=== PATIENT | female | born 1955 | race Two or more races ===

== ENCOUNTER 2020-05-07 09:22 | Outpatient (REF) | payer OTHER, SELFPAY ==
[2020-05-07 10:32] LABS: Alanine Aminotransferase 20 U/L (0-31); Albumin Level 4.5 g/dL (3.5-5.0); Alkaline Phosphatase 65 U/L (39-117); Anion Gap 12 (12-20); Aspartate Amino Transferase 20 U/L (5-31); Bilirubin Total 0.6 mg/dL (0.0-1.0); Blood Urea Nitrogen 16 mg/dL (9-16); Calcium 8.8 mg/dL (8.4-10.2); Carbon Dioxide 30 mmol/L (22-29); Chloride 104 mmol/L (96-108); Cholesterol 249 mg/dL; Estimated Glomerular Filt Rate > 60; Glucose Fasting 112 mg/dL (60-99); HDL Cholesterol 56 mg/dL; LDL Cholesterol Calculated 159 mg/dl; Potassium 4.2 mmol/l (3.3-5.1); Sodium 142 mmol/L (135-145); Triglycerides 174 mg/dL
== END 2020-05-07 09:23 | disposition home or self-care (01) ==
LOC: HO.LAB 09:22
PROVIDERS: Visit Provider Internal Medicine
DX: E78.00 Pure hypercholesterolemia, unspecified (principal); I10 Essential (primary) hypertension
CPT/HCPCS: 80053; 80061

== ENCOUNTER 2020-08-01 09:29 | Outpatient (REF) | payer OTHER, SELFPAY ==
[2020-08-01 10:36] LABS: Alanine Aminotransferase 20 U/L (0-31); Albumin Level 4.4 g/dL (3.5-5.0); Alkaline Phosphatase 74 U/L (39-117); Anion Gap 11 (12-20); Aspartate Amino Transferase 20 U/L (5-31); Bilirubin Total 0.7 mg/dL (0.0-1.0); Blood Urea Nitrogen 14 mg/dL (9-16); Calcium 8.8 mg/dL (8.4-10.2); Carbon Dioxide 30 mmol/L (22-29); Chloride 104 mmol/L (96-108); Cholesterol 198 mg/dL; Estimated Glomerular Filt Rate > 60; Glucose Fasting 112 mg/dL (60-99); HDL Cholesterol 54 mg/dL; LDL Cholesterol Calculated 112 mg/dl; Potassium 3.6 mmol/L (3.3-5.1); Sodium 141 mmol/L (135-145); Total Protein 6.8 g/dL (6.5-8.0); Triglycerides 164 mg/dL
== END 2020-08-01 09:30 | disposition home or self-care (01) ==
LOC: HO.LAB 09:29
PROVIDERS: PCP Internal Medicine; Visit Provider Internal Medicine
DX: E78.00 Pure hypercholesterolemia, unspecified (principal); E78.5 Hyperlipidemia, unspecified; L50.9 Urticaria, unspecified
CPT/HCPCS: 36415; 80053; 80061; 82784; 83516; 86003

== ENCOUNTER 2020-08-05 10:02 | Outpatient (REF) | payer OTHER, SELFPAY ==
--- NOTE | ~2020-08-05 | MM_ITS ---
EXAMINATION: MM SCREENING DIGITAL BREAST TOMOSYNTHESIS, BILATERAL CLINICAL INFORMATION: Screening. Asymptomatic. The lifetime risk of breast cancer based on the Tyrer-Cuzick Model is 5%. COMPARISON: Mammography: 07/19/2019, 05/04/2018, 04/20/2018, 02/24/2017 TECHNIQUE: Digital breast tomosynthesis is performed in both the craniocaudal and mediolateral oblique views along with computer-aided detection (CAD). Synthesized 2D images are generated from the tomosynthesis. FINDINGS: There are scattered areas of fibroglandular density (ACR BI-RADS breast composition Category b). Parenchymal pattern is similar to prior studies. There is no developing density or interval mass or architectural abnormality. Some scattered benign nodularity are stable. There are some scattered punctate calcifications in each breast and a few round grouped calcifications again seen mid 3:00 left breast. The axilla and skin contours are unremarkable. MM/MM tomosynthesis screening BI IMPRESSION: No mammographic evidence of malignancy. ASSESSMENT: BI-RADS 2: Benign RECOMMENDATION: Routine annual mammography screening. This patient's information was entered into a reminder system with a target due date for their next mammogram.
== END 2020-08-05 10:03 | disposition home or self-care (01) ==
LOC: HO.MAMMO 10:02
PROVIDERS: Visit Provider Internal Medicine
DX: Z12.31 Encounter for screening mammogram for malignant neoplasm of breast (principal)
CPT/HCPCS: 77063; 77067

== ENCOUNTER 2021-05-28 08:16 | Outpatient (REF) | payer OTHER, SELFPAY ==
[2021-05-28 09:07] LABS: Alanine Aminotransferase 23 U/L (0-31); Albumin Level 4.5 g/dL (3.5-5.0); Alkaline Phosphatase 65 U/L (39-117); Anion Gap 11 (12-20); Aspartate Amino Transferase 21 U/L (5-31); Bilirubin Total 0.6 mg/dL (0.0-1.0); Blood Urea Nitrogen 22 mg/dL (9-16); Calcium 9.4 mg/dL (8.4-10.2); Carbon Dioxide 28 mmol/L (22-29); Chloride 106 mmol/L (96-108); Cholesterol 161 mg/dL; Estimated Glomerular Filt Rate > 60; Glucose Fasting 125 mg/dL (60-99); HDL Cholesterol 54 mg/dL; LDL Cholesterol Calculated 87 mg/dl; Potassium 3.2 mmol/L (3.3-5.1); Sodium 142 mmol/L (135-145); Triglycerides 101 mg/dL
== END 2021-05-28 08:17 | disposition home or self-care (01) ==
LOC: HO.LAB 08:16
PROVIDERS: PCP Internal Medicine; Visit Provider Internal Medicine
DX: E78.00 Pure hypercholesterolemia, unspecified (principal); E78.5 Hyperlipidemia, unspecified
CPT/HCPCS: 36415; 80053; 80061

== ENCOUNTER 2021-08-06 10:54 | Outpatient (REF) | payer OTHER, SELFPAY ==
--- NOTE | ~2021-08-06 | MM_ITS ---
EXAMINATION: MM SCREENING DIGITAL BREAST TOMOSYNTHESIS, BILATERAL CLINICAL INFORMATION: Screening. Asymptomatic. The lifetime risk of breast cancer based on the Tyrer-Cuzick Model is 4%. COMPARISON: Mammography: 08/05/2020, 07/19/2019, 05/04/2018, 02/24/2017 TECHNIQUE: Digital breast tomosynthesis is performed in both the craniocaudal and mediolateral oblique views along with computer-aided detection (CAD). Synthesized 2D images are generated from the tomosynthesis. FINDINGS: There are scattered areas of fibroglandular density (ACR BI-RADS breast composition Category b). Parenchymal pattern is similar to prior studies. There is no developing density or interval mass or architectural abnormality. Intramammary node mid upper outer right breast and stable circumscribed nodule anterior lower inner right breast are again seen. There are scattered punctate calcifications right breast. The bilateral axilla and skin contours are unremarkable. Left breast has tightly grouped calcifications posterior 3:00 which may be increased over time. Patient will be recalled to obtain additional magnification views to fully characterize. MM/MM tomosynthesis screening BI IMPRESSION: 1. Left: Tightly grouped calcifications posterior 3:00 position questionably increased. 2. Right: No mammographic evidence of malignancy. ASSESSMENT: BI-RADS 0: Incomplete - Need Additional Imaging Evaluation RECOMMENDATION: 1. Additional views of the left breast (magnification CC, magnification ML). 2. Radiology department staff will contact the patient for additional imaging. This patient's information was entered into a reminder system with a target due date for their next mammogram.
== END 2021-08-06 10:55 | disposition home or self-care (01) ==
LOC: HO.MAMMO 10:54
PROVIDERS: PCP Internal Medicine; Visit Provider Internal Medicine
DX: Z12.31 Encounter for screening mammogram for malignant neoplasm of breast (principal)
CPT/HCPCS: 77063; 77067

== ENCOUNTER 2021-08-14 08:26 | Outpatient (REF) | payer OTHER, SELFPAY ==
--- NOTE | ~2021-08-14 | MM_ITS ---
EXAMINATION: MM DIAGNOSTIC DIGITAL MAMMOGRAPHY, LEFT CLINICAL INFORMATION: Calcifications upper outer aspect of the left breast. COMPARISON: Mammography: 08/06/2021 and studies dating back to 02/24/2017. TECHNIQUE: Digital mammography is performed in the following views: Spot magnification views in craniocaudal and 90 degree mediolateral views. FINDINGS: There are scattered areas of fibroglandular density (ACR BI-RADS breast composition Category b). The grouping of calcifications within the upper outer aspect of the left breast is seen to be stable for greater than 2 years. Results are provided to the patient at time of visit by the technologist. MM/MM added views LT IMPRESSION: Stable left breast calcifications. ASSESSMENT: BI-RADS 2: Benign RECOMMENDATION: Routine annual mammography screening due in 12 months. This patient's information was entered into a reminder system with a target due date for their next mammogram.
== END 2021-08-14 08:27 | disposition home or self-care (01) ==
LOC: HO.MAMMO 08:26
PROVIDERS: PCP Internal Medicine; Visit Provider Internal Medicine
DX: R92.1 Mammographic calcification found on diagnostic imaging of breast (principal)
CPT/HCPCS: 77065

== ENCOUNTER 2021-12-25 08:21 | Outpatient (REF) | payer OTHER, SELFPAY ==
[2021-12-25 09:41] LABS: Alanine Aminotransferase 19 U/L (0-31); Albumin Level 4.5 g/dL (3.5-5.0); Alkaline Phosphatase 67 U/L (39-117); Anion Gap 14 (12-20); Aspartate Amino Transferase 21 U/L (5-31); Bilirubin Total 0.7 mg/dL (0.0-1.0); Blood Urea Nitrogen 15 mg/dL (9-16); Calcium 9.5 mg/dL (8.4-10.2); Carbon Dioxide 28 mmol/L (22-29); Chloride 104 mmol/L (96-108); Cholesterol 165 mg/dL; Estimated Glomerular Filt Rate > 60; Glucose Fasting 124 mg/dL (60-99); HDL Cholesterol 56 mg/dL; LDL Cholesterol Calculated 88 mg/dl; Potassium 3.4 mmol/L (3.3-5.1); Sodium 143 mmol/L (135-145); Total Protein 7.1 g/dL (6.5-8.0); Triglycerides 109 mg/dL
== END 2021-12-25 08:22 | disposition home or self-care (01) ==
LOC: HO.LAB 08:21
PROVIDERS: PCP Internal Medicine; Visit Provider Internal Medicine
DX: R73.02 Impaired glucose tolerance (oral) (principal); E78.5 Hyperlipidemia, unspecified
CPT/HCPCS: 36415; 80053; 80061

== ENCOUNTER 2022-06-22 08:28 | Outpatient (REF) | payer OTHER, SELFPAY ==
[2022-06-22 10:17] LABS: Alanine Aminotransferase 20 U/L (0-31); Albumin Level 4.4 g/dL (3.5-5.0); Alkaline Phosphatase 76 U/L (39-117); Anion Gap 14 (12-20); Aspartate Amino Transferase 19 U/L (5-31); Bilirubin Total 0.6 mg/dL (0.0-1.0); Blood Urea Nitrogen 15 mg/dL (9-16); Calcium 9.4 mg/dL (8.4-10.2); Carbon Dioxide 28 mmol/L (22-29); Chloride 104 mmol/L (96-108); Cholesterol 154 mg/dL; Estimated Glomerular Filt Rate > 60; Glucose Fasting 121 mg/dL (60-99); HDL Cholesterol 49 mg/dL; LDL Cholesterol Calculated 84 mg/dl; Potassium 3.5 mmol/L (3.3-5.1); Sodium 142 mmol/L (135-145); Total Protein 6.9 g/dL (6.5-8.0); Triglycerides 108 mg/dL
== END 2022-06-22 08:29 | disposition home or self-care (01) ==
LOC: HO.LAB 08:28
PROVIDERS: PCP Internal Medicine; Visit Provider Internal Medicine
DX: E78.5 Hyperlipidemia, unspecified (principal); R73.02 Impaired glucose tolerance (oral)
CPT/HCPCS: 36415; 80053; 80061

== ENCOUNTER 2022-08-12 10:29 | Outpatient (REF) | payer OTHER, SELFPAY ==
--- NOTE | ~2022-08-12 | MM_ITS ---
EXAMINATION: MM SCREENING DIGITAL BREAST TOMOSYNTHESIS, BILATERAL CLINICAL INFORMATION: Screening. Asymptomatic. The lifetime risk of breast cancer based on the Tyrer-Cuzick Model is 4%. COMPARISON: Mammography: 08/14/2021, 08/06/2021, 08/05/2020, 07/19/2019, 05/04/2018 TECHNIQUE: Digital breast tomosynthesis is performed in both the craniocaudal and mediolateral oblique views along with computer-aided detection (CAD). Synthesized 2D images are generated from the tomosynthesis. FINDINGS: There are scattered areas of fibroglandular density (ACR BI-RADS breast composition Category b). There are no significant masses, abnormal calcifications, or other abnormalities. No architectural abnormality or developing density or significant change from prior studies. There is incidental stable circumscribed nodule mid lower inner right breast and an incidental intramammary node mid upper outer right breast. The axilla and skin contours are unremarkable. MM/MM tomosynthesis screening BI IMPRESSION: No mammographic evidence of malignancy. ASSESSMENT: BI-RADS 2: Benign RECOMMENDATION: Routine annual mammography screening. This patient's information was entered into a reminder system with a target due date for their next mammogram.
== END 2022-08-12 10:30 | disposition home or self-care (01) ==
LOC: HO.MAMMO 10:29
PROVIDERS: PCP Internal Medicine; Visit Provider Internal Medicine
DX: Z12.31 Encounter for screening mammogram for malignant neoplasm of breast (principal)
CPT/HCPCS: 77063; 77067

== ENCOUNTER → 2022-08-13 09:29 | Outpatient (BNVA) | payer OTHER, SELFPAY | PROVIDERS: PCP Internal Medicine; Visit Provider Surgery | DX: Z85.038 Personal history of other malignant neoplasm of large intestine (principal) | CPT/HCPCS: 99212 ==

== ENCOUNTER 2022-09-25 06:02 | Day surgery (SDC) | payer OTHER, SELFPAY ==
[2022-09-22 11:24] VITALS: BMI 30.2
--- NOTE | 2022-09-24 09:12 | HO.ANESPROP2 ---
HPI - Anesthesia Eval Consult details Narrative: 66yo F for Colonoscopy PMFSH Active Problems Active Problems: All Active Problems (Updated 08/13/22 @ 09:49 by Palomo Roth MD) History of colon cancer (Acute) Physical exam (Acute) Screening for cervical cancer (Acute) Obesity (BMI 30-39.9) (Acute) Impaired glucose tolerance (Acute) Pure hypercholesterolemia (Acute) Urticaria (Acute) Migraines (Acute) Essential hypertension (Acute) Past Medical History Medical History Essential hypertension History of colon cancer Impaired glucose tolerance Migraines Pure hypercholesterolemia Urticaria Family History Family History Father Throat cancer Mother Diabetes Sister Uterine cancer Brother Lung cancer Surgical History Surgical History History of hemicolectomy History of ileostomy History of incisional hernia repair History of tubal ligation Hx of colonoscopy Social History Social History Housing: Apartment Alcohol intake: never Patient Tobacco Use Status: Former Tobacco user Quit Date: >20 yrs ago Tobacco use type: Cigarette e-Cigarette/Vaping Use: Never Used Second Hand Smoke Exposure: No service: No Current occupational status: disabled Cognitive needs: No Hearing needs: No Vision needs: No Meds Allergies Allergy/AdvReac Type Severity Reaction Status Date / Time No Known Allergies Allergy Verified 09/25/22 06:29 [No Known Allergies*] Home Medications Medication Instructions Recorded Confirmed Last Taken Type levocetirizine 5 mg tablet (Xyzal) 5 mg PO DAILY 01/09/21 09/22/22 Unknown History Exam Exam Date and Time: September 24, 2022 0912 Height,Weight and Vital Signs: Height 5 ft 4 in Weight 79.832 kg Pertinent Lab Results Pertinent Lab Results: Laboratory Tests 06/22/22 08:45 Sodium 142 Potassium 3.5 Chloride 104 Carbon Dioxide 28 BUN 15 Creatinine 0.79 Assessment and Plan Assessment Anesthesia Assessment: Chart Reviewed
[2022-09-25 06:29] VITALS: BMI 28.7
[2022-09-25 06:54] VITALS: BP 153/66; PULSE 76; RESP 16; TEMP 36.2; O2SAT 98
[2022-09-25] MEDS: Lactated Ringers 1,000 ML 100 ML IVCONT (07:02)
--- NOTE | 2022-09-25 07:22 | P.CONAN_ITS ---
[facility] Active Problems Active Problems: All Active Problems (Updated 08/13/22 @ 09:49 by Palomo Roth MD) Obesity (BMI 30-39.9) (Acute) Screening for cervical cancer (Acute) Physical exam (Acute) History of colon cancer (Acute) Impaired glucose tolerance (Acute) Pure hypercholesterolemia (Acute) Urticaria (Acute) Migraines (Acute) Essential hypertension (Acute) Past Medical History Medical History Essential hypertension History of colon cancer Impaired glucose tolerance Migraines Pure hypercholesterolemia Urticaria Functional capacity: wheelchair bound Family History Family History Father Throat cancer Mother Diabetes Sister Uterine cancer Brother Lung cancer Surgical History Surgical History History of hemicolectomy History of ileostomy History of incisional hernia repair History of tubal ligation Hx of colonoscopy Social History Social History Housing: Apartment Alcohol intake: never Patient Tobacco Use Status: Former Tobacco user Quit Date: >20 yrs ago Tobacco use type: Cigarette e-Cigarette/Vaping Use: Never Used Second Hand Smoke Exposure: No Use of substances other than those prescribed or required for medical reasons: No Are you DNR?: No Advance Directives: No Advance Directives Information Provided: Yes service: No Current occupational status: disabled Cognitive needs: No Hearing needs: No Vision needs: No Meds Allergies Allergy/AdvReac Type Severity Reaction Status Date / Time No Known Allergies Allergy Verified 09/25/22 06:29 [No Known Allergies*] Active Medications: Current Medications Lactated Ringer's (Lr) 1,000 mls @ 100 mls/hr IVCONT .Q10H MELCHOR Last Admin: 09/25/22 07:02 Dose: 100 mls/hr Home Medications Medication Instructions Recorded Confirmed Last Taken Type levocetirizine 5 mg tablet (Xyzal) 5 mg PO DAILY 01/09/21 09/22/22 Unknown History Exam Exam Date and Time: September 25, 202222 Height,Weight and Vital Signs: Height 5 ft 4 in Weight 75.75 kg Last Vital Signs Temp 97.2 F 09/25/22 06:54 Pulse 76 09/25/22 06:54 Resp 16 09/25/22 06:54 BP 153/66 H 09/25/22 06:54 Pulse Ox 98 09/25/22 06:54 O2 Del Method Room Air 09/25/22 06:54 Airway Mallampati Class: II TM Dist: >3cm Neck ROM: Full Heart: RRR Lungs: CTA Assessment and Plan Assessment Anesthesia Assessment: Anesthesia Plan Discussed Final Anesthetic Review ASA Class: II Final Preanesthetic Review: Meds/Allgs Chart Reviewed, Anes Risks/Benef Reviewed and DNR Form (If Appl.) Patient Risk: Low Procedure Risk: Low Anesthetic Plan Anesthetic Plan: MAC: Disposition: Standard PACU
--- NOTE | 2022-09-25 07:32 | MHC.SHP ---
Pre-Procedural Eval Section A Date of Service: 09/25/22 The History & Physical has been completed within 30 days and I have reviewed it.: No Section B Chief Complaint: Personal history of other malignant neoplasm Details of Present Illness: has history of rectosigmoid cancer status post resection; had a flat polyp right colon in 2019 Relevant Family History (Specify if Yes): No Relevant Social History: None Present Medications: see Short Stay Collaborative assessment Medical History: Significant History ( hyperlipidemia, hypertension, migraine) Allergies: Allergies Allergy/AdvReac Type Severity Reaction Status Date / Time No Known Allergies Allergy Verified 09/25/22 06:29 [No Known Allergies*] Review of Systems Sugical H&P ROS: Negative: Constitution, Cardiovascular, Respiratory, Neurological, Psychiatric, Hem-Onc, Allergic/Immunologic, Gastrointestinal, Genitourinary, Musculoskeletal, Integumentary, Endocrine and Eyes/Ears/Nose/Throat Exam Surgical H&P Exam: Normal: HEENT, Normal: Heart, Normal: Lungs, Normal: Extremities, Normal: Abdomen, Normal: Skin and Normal: Neurological Plan Diagnosis/Plan: Unchanged I have reviewed the history and physical and performed a pertinent physical examination on my patient. No changes have occurred unless specified. Time Spent With Patient Time: Total time managing care of this patient today ____ minutes.
--- NOTE | 2022-09-25 08:11 | W.PM.OPN ---
Operative Note Operative Note Date of Service: 09/25/22 Narrative: Preop diagnosis: History of colon cancer Postop diagnosis: 1. Occasional diverticulosis all the way to the cecum 2. small polyp, about 4 mm, cecum 3. internal and external hemorrhoids Procedure: Colonoscopy with polypectomy using cold forceps x1 The patient is a 66-year-old female with a personal history of colon cancer in the rectosigmoid, status post resection. She is here for screening colonoscopy. she understood the technique of colonoscopy. She was aware of the risks, benefits, and alternatives The patient was brought to the operating room and placed in left lateral decubitus position under monitored anesthesia care. A surgical time-out was done. A full digital rectal exam was done and this did not reveal any significant anal lesions. The tip of the Olympus colonoscope was gently introduced through the anal orifice advanced with insufflation all the way to the cecum. The cecum was intubated. The cecum was identified by visualization of the ileocecal valve as well as the appendiceal orifice. The cecal mucosa was unremarkable. There was note of a polyp, about 3-4 mm in the cecum that was removed with multiple biopsy the cold forceps. The scope was gradually withdrawn with careful examination of the entire colonic mucosa being done with scope withdrawal. There was note of occasional diverticuli in the cecum and the rest of the colon. The patient had adequate bowel prep so it was unlikely that any lesion may have been missed. The rectum was reached and there were no lesions seen. The anal canal was unremarkable except for prominent internal and external hemorrhoids.. The scope was then withdrawn completely with desufflation The patient tolerated procedure well. There were no immediate complications. Because of her personal history of colon cancer, her next colonoscopy may be in the next 5 years depending on the path report as well.
[2022-09-25 08:16] VITALS: BP 87/54; PULSE 84; RESP 16; TEMP 36.5; O2SAT 98
[2022-09-25 08:31] VITALS: BP 119/67; PULSE 78; RESP 16; TEMP 36.5; O2SAT 98
--- NOTE | 2022-09-25 08:49 | HO.POSTANES ---
Post Anesthesia Evaluation Post Anesthesia Evaluation Vital Signs: Vital Signs Temp Pulse Resp BP Pulse Ox O2 Del Method 09/25/22 08:31 97.7 F 78 16 119/67 98 Room Air 09/25/22 08:16 97.7 F 84 16 87/54 L 98 Room Air 09/25/22 06:54 97.2 F 76 16 153/66 H 98 Room Air Anesthesia: Monitored Mental Status: Awake Pain Control: Satisfactory Nausea/Vomiting: None Hydration: Adequate Anesthesia-Related Issues: No Anes. Related Issues
== END 2022-09-25 09:06 | disposition home or self-care (01) ==
PROVIDERS: PCP Internal Medicine; Visit Provider Surgery
PROC: 0DJD8ZZ Inspection of Lower Intestinal Tract, Via Natural or Artificial Opening Endoscopic (ICD-10-PCS; CPT 45378; principal; 2022-09-25 07:30)
DX: Z12.11 Encounter for screening for malignant neoplasm of colon (principal); D12.0 Benign neoplasm of cecum; K57.30 Diverticulosis of large intestine without perforation or abscess without bleeding; K64.8 Other hemorrhoids; K64.4 Residual hemorrhoidal skin tags; Z85.048 Personal history of other malignant neoplasm of rectum, rectosigmoid junction, and anus; Z86.010 Personal history of colon polyps; I10 Essential (primary) hypertension; Z79.899 Other long term (current) drug therapy
CPT/HCPCS: 45380; 88305

== ENCOUNTER 2022-10-08 07:52 | Outpatient (REF) | payer OTHER, SELFPAY ==
[2022-10-15 09:23] LABS: HPV mRNA E6/E7 rflx Not Detected (Not Detected)
== END 2022-10-08 07:53 | disposition home or self-care (01) ==
LOC: HO.LNP 07:52
PROVIDERS: PCP Internal Medicine; Visit Provider Advanced Practice Midwife
DX: Z01.419 Encounter for gynecological examination (general) (routine) without abnormal findings (principal); N89.8 Other specified noninflammatory disorders of vagina; Z20.2 Contact with and (suspected) exposure to infections with a predominantly sexual mode of transmission
CPT/HCPCS: 87624; 88142

== ENCOUNTER 2022-10-08 08:39 | Outpatient (REF) | payer OTHER, SELFPAY ==
[2022-10-08 15:49] LABS: CT PCR NOT DETECTED (Not Detect.); NG PCR NOT DETECTED (Not Detect.)
[2022-10-09 11:40] LABS: BV Int Neg Control Negative (Negative); BV Int Pos Control Positive (Positive)
== END 2022-10-08 08:40 | disposition home or self-care (01) ==
LOC: HO.LAB 08:39
PROVIDERS: Visit Provider Advanced Practice Midwife
DX: K43.2 Incisional hernia without obstruction or gangrene (principal); N89.8 Other specified noninflammatory disorders of vagina; Z85.038 Personal history of other malignant neoplasm of large intestine; Z20.2 Contact with and (suspected) exposure to infections with a predominantly sexual mode of transmission
CPT/HCPCS: 0353U; 87480; 87510; 87660; 99212

== ENCOUNTER 2022-11-06 10:13 | Outpatient (REF) | payer OTHER, SELFPAY ==
--- NOTE | ~2022-11-06 | CT_ITS ---
EXAMINATION: CT ABDOMEN AND PELVIS WITHOUT CONTRAST CLINICAL INFORMATION: Incisional hernia without obstruction or gangrene COMPARISON: CT abdomen/pelvis 06/09/2018 TECHNIQUE: Multidetector volumetric imaging was performed from the superior aspect of the liver through the pubic symphysis. Sagittal and coronal reformatted images were obtained on the technologist's workstation. This CT examination was performed using dose optimization techniques as appropriate, variously including the following: *Automated exposure control *Adjustment of mA and/or kV according to patient size (this includes techniques or standardized protocols for targeted exams where dose is matched to indication/reason for exam; i.e. extremities or head) *Use of iterative reconstruction technique DLP: 506.5 mGy-cm FINDINGS: LUNG BASES: The visualized lung bases are unremarkable. LIVER, GALLBLADDER, AND BILIARY TREE: The liver is normal in size, shape, and attenuation. No focal hepatic lesion or biliary ductal dilatation is present. The gallbladder contains some layering high density gallstones seen previously without pericholecystic inflammatory changes. PANCREAS: Unremarkable. SPLEEN: Unremarkable. ADRENAL GLANDS: There is a 3.3 x 2.6 x 2.9 cm water density left adrenal mass consistent with a benign adenoma, unchanged from 2019. KIDNEYS AND URETERS: The kidneys are normal in size, shape, and attenuation. No hydronephrosis, hydroureter, or calculi seen. No perinephric stranding. BLADDER: Unremarkable. GASTROINTESTINAL TRACT: A tiny hiatal hernia is present. Anastomotic staple line seen in the ileum as well as the sigmoid colon without evidence of obstruction. The small and large bowel are otherwise unremarkable. The appendix is unremarkable. ABDOMINAL WALL: There are 2 areas of ventral herniation in the supraumbilical region; there is a tiny area with only a slight forward bulge measuring 1.3 cm in width protruding only 0.5 cm (4:326). Just above this is a small ventral hernia containing only fat with defect measuring 1.0 x 0.5 cm (4:289). There is a tiny periumbilical hernia containing only fat. No inguinal hernias are present. LYMPH NODES: No retroperitoneal lymphadenopathy. VASCULAR: Calcific atherosclerotic change seen in the aorta and iliofemoral vessels without aneurysm. PELVIC VISCERA: The uterus and adnexa are unremarkable aside from the presence of some calcifications in the uterus most likely representing uterine fibroids. These calcifications have increased in size since the time of the prior study. Endovaginal and transabdominal ultrasound is recommended for confirmation. OSSEOUS STRUCTURES: Mild degenerative changes are seen in the spine without bony destructive lesions. CT/CT abdomen pelvis wo IV con IMPRESSION: 1. There are 2 small ventral hernias containing only fat as described above. 2. There is a probable uterine fibroids with increasing calcification in the uterus. Transabdominal and endovaginal pelvic ultrasound is recommended for confirmation. 3. Incidental note made of cholelithiasis, sigmoid resection stable left adrenal adenoma and degenerative changes in the spine. Fleischner guidelines were followed.
== END 2022-11-06 10:14 | disposition home or self-care (01) ==
LOC: HO.CT 10:13
PROVIDERS: Visit Provider Surgery
DX: K43.2 Incisional hernia without obstruction or gangrene (principal)
CPT/HCPCS: 74176

== ENCOUNTER → 2022-11-25 09:50 | Outpatient (BNVA) | payer OTHER, SELFPAY | PROVIDERS: PCP Internal Medicine; Visit Provider Surgery | DX: K43.2 Incisional hernia without obstruction or gangrene (principal) | CPT/HCPCS: 99212 ==

== ENCOUNTER 2022-12-11 06:36 | Day surgery (SDC) | payer OTHER, MEDICAID, SELFPAY ==
[2022-12-08 13:58] VITALS: BMI 29.3
--- NOTE | 2022-12-10 09:15 | HO.ANESPROP2 ---
Documented by User: Sarah Bryant NP 12/10/22 09:16 HPI - Anesthesia Eval Consult details Narrative: 67yo F for Hernia Repair Incisional x2, epigastric area PMFSH Active Problems Active Problems: All Active Problems (Updated 10/08/22 @ 10:33 by Palomo Roth MD) Obesity (BMI 30-39.9) (Acute) Screening for cervical cancer (Acute) Physical exam (Acute) Incisional hernia (Acute) History of colon cancer (Acute) Impaired glucose tolerance (Acute) Pure hypercholesterolemia (Acute) Urticaria (Acute) Migraines (Acute) Essential hypertension (Acute) Past Medical History Medical History Essential hypertension History of colon cancer Impaired glucose tolerance Incisional hernia Migraines Pure hypercholesterolemia Urticaria Family History Family History Father Throat cancer Mother Diabetes Sister Uterine cancer Brother Lung cancer Surgical History Surgical History History of hemicolectomy History of ileostomy History of incisional hernia repair History of tubal ligation Hx of colonoscopy Social History Social History Housing: Apartment Alcohol intake: never Patient Tobacco Use Status: Former Tobacco user Quit Date: >20 yrs ago Tobacco use type: Cigarette e-Cigarette/Vaping Use: Never Used Second Hand Smoke Exposure: No Are you DNR?: No Advance Directives: No Advance Directives Information Provided: Yes Nutrition Risks: No Nutritional Risk service: No Current occupational status: disabled Sexual orientation: Straight/Heterosexual Gender identity: Female Cognitive needs: No Hearing needs: No Vision needs: No Meds Allergies Allergy/AdvReac Type Severity Reaction Status Date / Time No Known Allergies Allergy Verified 12/11/22 06:53 [No Known Allergies*] Home Medications Medication Instructions Recorded Confirmed Last Taken Type levocetirizine 5 mg tablet (Xyzal) 5 mg PO DAILY 01/09/21 09/22/22 Unknown History Exam Exam Date and Time: December 10, 2022 0915 Height,Weight and Vital Signs: Height 5 ft 4 in Weight 77.564 kg Pertinent Lab Results Pertinent Lab Results: Laboratory Tests 06/22/22 08:45 Sodium 142 Potassium 3.5 Chloride 104 Carbon Dioxide 28 BUN 15 Creatinine 0.79 Assessment and Plan Assessment Anesthesia Assessment: Chart Reviewed Documented by User: Arthur Pedroza MD 12/11/22 09:16 [facility] Past Medical History Medical History Essential hypertension History of colon cancer Impaired glucose tolerance Incisional hernia Migraines Pure hypercholesterolemia Urticaria Family History Family History Father Throat cancer Mother Diabetes Sister Uterine cancer Brother Lung cancer Family history of problems with anesthesia: No Surgical History Surgical History History of hemicolectomy History of ileostomy History of incisional hernia repair History of tubal ligation Hx of colonoscopy History of Problems with Anesthesia: No Social History Social History Housing: Apartment Alcohol intake: never Patient Tobacco Use Status: Former Tobacco user Quit Date: >20 yrs ago Tobacco use type: Cigarette e-Cigarette/Vaping Use: Never Used Second Hand Smoke Exposure: No Are you DNR?: No Advance Directives: No Advance Directives Information Provided: Yes Nutrition Risks: No Nutritional Risk service: No Current occupational status: disabled Sexual orientation: Straight/Heterosexual Gender identity: Female Cognitive needs: No Hearing needs: No Vision needs: No Meds Allergies Allergy/AdvReac Type Severity Reaction Status Date / Time No Known Allergies Allergy Verified 12/11/22 06:53 [No Known Allergies*] Home Medications Medication Instructions Recorded Confirmed Last Taken Type levocetirizine 5 mg tablet (Xyzal) 5 mg PO DAILY 01/09/21 09/22/22 Unknown History Exam Airway Mallampati Class: II TM Dist: <=3cm Neck ROM: Full Heart: ok Lungs: ok Assessment and Plan Assessment Anesthesia Assessment: Anesthesia Plan Discussed Final Anesthetic Review Family History of Problems with Anesthesia: No History of Problems with Anesthesia: No NPO: Yes ASA Class: II Final Preanesthetic Review: No Changes in Pt Med Stat, Meds/Allgs Chart Reviewed, Consent Obtained/Reviewed and Anes Risks/Benef Reviewed Patient Risk: Intermediate Procedure Risk: Low Anesthetic Plan Anesthetic Plan: GA and Agree w/ Assess. and Plan Disposition: Standard PACU
[2022-12-11] MEDS: Lactated Ringers 1,000 ML 100 ML IVCONT (07:06)
[2022-12-11 07:12] VITALS: BP 121/62; PULSE 70; RESP 18; TEMP 36.4; O2SAT 99
--- NOTE | 2022-12-11 08:19 | MHC.SHP ---
Pre-Procedural Eval Section A Date of Service: 12/11/22 The patient is an INPATIENT: No Changes since office visit: No Cold of Flu in the past 2 weeks, No New Medical Problems, No Changes in Medication and No Patient answered all questions The History & Physical has been completed within 30 days and I have reviewed it.: Yes Section B Chief Complaint: Incisional hernia without obstruction or gangrene Allergies: Allergies Allergy/AdvReac Type Severity Reaction Status Date / Time No Known Allergies Allergy Verified 12/11/22 06:53 [No Known Allergies*] Plan I have reviewed the history and physical and performed a pertinent physical examination on my patient. No changes have occurred unless specified. Time Spent With Patient Time: Total time managing care of this patient today ____ minutes.
--- NOTE | 2022-12-11 09:31 | P.OP_ITS ---
Operative Note Operative Note Date of Service: 12/11/22 Narrative: Preop Diagnosis: epigastric hernia x2 Postop diagnosis: The same Procedure: Repair of epigastric hernia x2 using Vexntralex mesh; 2 hernias converted to 1 hernia with a 4.5 cm length of defect Surgeon: Palomo Roth MD computer lab assistant: KATJA Turner The patient is 67 year old female with palpable 2 small masses on the epigastric area. She did have a history of a port site on this area for colon resection in the past. Her CAT scan showed to defects in the epigastric area both fat containing. She understood the technique of repair with mesh. She was aware of the risks, benefits, and alternatives She was brought to the operating room and placed supine under general anesthesia via laryngeal mask airway. The abdomen is prepped and draped in the usual sterile fashion. A surgical time-out was done to the patient received cefazolin 2 g IV preoperatively I infiltrated the planned line on incision in the epigastric area overlying a palpable reducible mass using blade 15. This carried out the full-thickness of the skin subcutaneous fat with electrocautery until I visualized a hernia. This hernia is fat containing. I sharply dissected this done to the fascial defect using Metzenbaum scissors until I was able to reduce this completely. This 1st hernia was about 1 cm in diameter. I palpated underneath the hernia and I was able to feel another defect inferior to this. There was note of short intervening band. I therefore extended my incision inferiorly. I sharply dissected through their subcutaneous layer to expose the 2nd hernia. There was note of a larger fat containing hernia. I sharply dissected this down to the fascial defect using Metzenbaum scissors until I was able to reduce this completely. This larger hernia was about 3 cm in diameter. I divided the int ervening band of fascia to make this two hernias as 1. I had to some lysis of adhesions to separate this entire omentum off of the fascial defect. This final fascial defect was about 4.5 cm in diameter I then proceeded to apply a medium-sized Ventralex mesh to reinforce entire hernia. There is note of adequate coverage. I secured this mesh using the Prolene straps to the fascia on both sides using Prolene 2 sutures. I trimmed the Prolene straps. I then closed the fascia with a running Maxon 1 stitch, incorporating the Prolene site of the mesh with some of the sutures There was note of good hemostasis prior to closure. I made sure that there was no bowel caught within the repair. The subcutaneous layer was reapposed with pulse of the 0 interrupted sutures. Skin closure was achieved with pulse of 4-0 subcuticular running sutures. The area was infiltrated with Marcaine 0.5% for postop analgesia. Dressings were applied. The procedure went completed. The patient tolerated procedure well. There were no immediate complications. Initial and final counts of sponges and instruments were correct . Estimated blood loss was about 10 cc .The patient was extubated without difficulty and transferred to the recovery room with stable vital signs.
[2022-12-11 09:50] VITALS: BP 127/71; PULSE 74; RESP 14; TEMP 36.1; O2SAT 95
[2022-12-11 09:55] VITALS: BP 126/68; PULSE 81; RESP 16; O2SAT 96
[2022-12-11 10:00] VITALS: BP 126/70; PULSE 69; RESP 18; O2SAT 99
[2022-12-11 10:05] VITALS: BP 133/70; PULSE 62; RESP 18; O2SAT 99
[2022-12-11] MEDS: ondansetron HCL 4 MG/2 ML VIAL IVPUSH (10:16)
[2022-12-11] MEDS: oxyCODONE HCl Immed Release 5 MG TABLET PO (10:17)
[2022-12-11 10:20] VITALS: BP 137/65; PULSE 60; RESP 18; TEMP 36.1; O2SAT 100
== END 2022-12-11 11:10 | disposition home or self-care (01) ==
PROVIDERS: PCP Internal Medicine; Visit Provider Surgery
PROC: (CPT 49593; principal; 2022-12-11 09:00)
DX: K43.2 Incisional hernia without obstruction or gangrene (principal); I10 Essential (primary) hypertension; Z85.038 Personal history of other malignant neoplasm of large intestine
CPT/HCPCS: 49593; C1781; J0690; J1885; J2250; J2405; J2795; J3010

== ENCOUNTER → 2022-12-11 06:36 | Outpatient (BNV) | payer OTHER, SELFPAY | PROVIDERS: PCP Internal Medicine; Visit Provider Surgery | DX: K43.0 Incisional hernia with obstruction, without gangrene (principal); K66.0 Peritoneal adhesions (postprocedural) (postinfection) | CPT/HCPCS: 49594 ==

== ENCOUNTER 2022-12-23 09:29 | Outpatient (AMB) | payer MEDICARE, MEDICAID, SELFPAY ==
--- NOTE | 2022-12-23 09:31 | MHC.PC.OV ---
Vital Signs 12/23/22 09:32 Height 5 ft 4 in Weight 168 lb BMI 28.8 BP 130/78 Blood Pressure Location Lt brachial Position Sitting Intake Visit Reasons: bp Intake Note: Patient here for a follow up BP Theatrical Variety Agent Required: No Accompanied by: Self / Same As Patient Allergies No Known Allergies [No Known Allergies*] Allergy (Verified 12/23/22 09:41) Medication List - Last Reconciled 12/23/22 by Carmelita Goncalves MD hydrochlorothiazide 25 mg PO DAILY hydroxyzine HCl 50 mg PO TID PRN 30 days ibuprofen 800 mg PO Q8H PRN 30 days levocetirizine (Xyzal) 5 mg PO DAILY oxycodone-acetaminophen 5-325 mg (Percocet) 1 tab PO Q4-6H PRN rosuvastatin 5 mg PO DAILY Tobacco use date assessed: 06/25/22 Fall risk assessment: No Falls in past year Last assessed Fall Risk: 12/23/22 Dental Screening Dental Screen Date: 12/23/22 Did you have a dental visit in the last 12 months?: No Did you have a dental problem in the last 6 months where you did not have access to dental care?: No Was dental information given to patient?: Patient has dentist HPI HPI Comments History of Present Illness Details This is a 67-year-old female with hypertension, pure hypercholesterolemia, migraines and urticaria that comes today for follow-up on her conditions. Blood pressure stable. On statins for cholesterol which is working well. Migraines happen once a month and is well control with ibuprofen as needed. For itchiness she use hydroxy seen as needed. No chest pain or shortness of breath. [facility] Medical History Essential hypertension History of colon cancer Impaired glucose tolerance Incisional hernia Migraines Pure hypercholesterolemia Urticaria Surgical History History of hemicolectomy History of hernia surgery History of ileostomy History of incisional hernia repair History of tubal ligation Hx of colonoscopy Family History Father Throat cancer Mother Diabetes Sister Uterine cancer Brother Lung cancer Social History Housing: Apartment Alcohol intake: never Patient Tobacco Use Status: Former Tobacco user Quit Date: >20 yrs ago Tobacco use type: Cigarette e-Cigarette/Vaping Use: Never Used Second Hand Smoke Exposure: No service: No Current occupational status: disabled Sexual orientation: Straight/Heterosexual Gender identity: Female Cognitive needs: No Hearing needs: No Vision needs: No Questionnaire Thrive Questionnaire Date Thrive assessed: 06/25/22 EVELYN-7 AMB Questionnaire EVELYN-7 Date EVELYN - 7 assessed: 06/25/22 Source: Developed by Drs. Jag Oropeza, Ami Oneill, Alex Castanon and colleagues, with an educational kianna from [employer]. Review of Systems Const All systems reviewed & are unremarkable except as noted in HPI and below Eyes Reports no additional complaints, Denies change in vision and Denies other visual disturbances Card Denies chest pain at rest, Denies chest pain with activity, Denies edema, Denies irregular heart rhythm, Denies claudication, Denies dyspnea, Denies dyspnea on exertion, Denies orthopnea, Denies paroxysmal nocturnal dyspnea and Denies slow heart rate Resp Denies cough, Denies dyspnea and Denies dyspnea on exertion GI Denies abdominal pain, Denies change in bowel habits, Denies excessive flatus, Denies nausea and Denies vomiting Denies urinary incontinence, Denies urinary hesitancy and Denies urinary urgency Musc Denies abnormal gait, Denies atrophy, Denies deformity and Denies limited range of motion Skin/Breast Denies bleeding lesions, Denies changing lesions and Denies rash Neuro Denies abnormal gait and Denies lack of coordination Physical exam (Primary Care) Vital Signs: Last Vital Signs BP 130/78 12/23/22 09:32 BMI result Body Mass Index 28.8 Tobacco/Smoking Status: Tobacco use Status Tobacco use date assessed 06/25/22 12/23/22 09:39 Patient Tobacco Use Status Former Tobacco user 12/23/22 09:39 Tobacco use type Cigarette 12/23/22 09:39 e-Cigarette/Vaping Use Never Used 12/23/22 09:39 Thrive Assessment: Date of Thrive Assessment Date Thrive assessed 06/25/22 12/23/22 09:39 Eyes General: appearance normal, both eyes and all related structures Eyelids: Yes eyelids normal Conjunctivae: conjunctivae normal Neck Neck: Yes normal visual inspection and Yes supple Resp Effort & Inspection: normal respiratory effort Auscultation: clear to auscultation bilaterally Cardio Jugular venous distension: no JVD Rate: regular rate Rhythm: regular rhythm Heart sounds: S1 normal heart sound present and S2 normal heart sound present Extrem General: Yes full ROM Assessment and Plan Assessment & Plan (1) Essential hypertension: Code(s): I10 - Essential (primary) hypertension Plan: Continue hydrochlorothiazide. Blood pressure goal is equal or less than 130/80. (2) Pure hypercholesterolemia: Code(s): E78.00 - Pure hypercholesterolemia, unspecified Plan: Continue statins. (3) Urticaria: Code(s): L50.9 - Urticaria, unspecified Plan: Continue hydroxy seen as needed. (4) Migraines: Code(s): G43.909 - Migraine, unspecified, not intractable, without status migrainosus Plan: Continue ibuprofen as needed. Coding Level of Care Code Est Pt Level 4 (36179) Diagnoses Essential hypertension I10 Pure hypercholesterolemia E78.00 Urticaria L50.9 Migraines G43.909 Time Spent (min) 21
[2022-12-23 09:32] VITALS: BP 130/78; BMI 28.8
== END 2022-12-23 09:48 | disposition home or self-care (01) ==
PROVIDERS: PCP Internal Medicine; Visit Provider Internal Medicine
DX: I10 Essential (primary) hypertension (principal); E78.00 Pure hypercholesterolemia, unspecified; L50.9 Urticaria, unspecified; G43.909 Migraine, unspecified, not intractable, without status migrainosus
CPT/HCPCS: 99214

== ENCOUNTER 2022-12-24 08:32 | Outpatient (AMB) | payer OTHER, SELFPAY ==
--- NOTE | 2022-12-24 08:34 | A.OFFVIS_ITS ---
Intake Vital Signs 12/24/22 08:40 Height 5 ft 4 in Weight 170 lb BMI 29.2 BP 132/69 Blood Pressure Location Lt brachial Position Sitting Pulse 73 Intake Visit Reasons: S/P repair incisional hernias x2 Intake Note: This patient presents for a post-op assessment status post repair of incisional hernias x2. Patient denies complaints at this time pertaining to surgery. Intel Recruiter Required: Yes Intel Recruiter Language: Sales Representative Printing Name: Patient declined appliance repairer Accompanied by: Other Relationship Allergies No Known Allergies [No Known Allergies*] Allergy (Verified 12/24/22 08:42) HPI S/P repair incisional hernias x2 HPI Details She had undergone repair of 2 incisional hernias last 12/11/2022. She tolerated procedure well. She currently denies significant complaints and feels well overall. [facility] Medical History Essential hypertension History of colon cancer Impaired glucose tolerance Incisional hernia Migraines Pure hypercholesterolemia Urticaria Surgical History History of hemicolectomy History of hernia surgery History of ileostomy History of incisional hernia repair History of incisional hernia repair (~2022) History of tubal ligation Hx of colonoscopy Family History Father Throat cancer Mother Diabetes Sister Uterine cancer Brother Lung cancer Social History Housing: Apartment Alcohol intake: never Patient Tobacco Use Status: Former Tobacco user Quit Date: >20 yrs ago Tobacco use type: Cigarette e-Cigarette/Vaping Use: Never Used Second Hand Smoke Exposure: No service: No Current occupational status: disabled Sexual orientation: Straight/Heterosexual Gender identity: Female Cognitive needs: No Hearing needs: No Vision needs: No Review of Systems Const Denies chills and Denies fever(s) Card Denies chest pain, Denies dyspnea and Denies dyspnea on exertion Resp Denies cough, Denies dyspnea and Denies dyspnea on exertion GI Denies hematochezia and Denies change in bowel habits Denies hematuria Musc Denies back pain and Denies limited range of motion Neuro Denies focal weakness and Denies convulsions Psych Denies depression and Denies mood swings Physical Exam Vital Signs: Last Vital Signs Pulse 73 12/24/22 08:40 BP 132/69 12/24/22 08:40 BMI result Body Mass Index 29.2 Const General: comfortable and no acute distress Resp Effort & Inspection: normal respiratory effort Cardio Rate: regular rate GI Other: Abdomen soft, nontender, nondistended, no guarding, no rebound, incision is well healed, no evidence of recurrence Assessment & Plan Assessment & Plan (1) Incisional hernia: Code(s): K43.2 - Incisional hernia without obstruction or gangrene Plan: Status post repair with mesh. She is doing very well. Her incision is well healed. The repair site is intact. I advised her to avoid any lifting more than 20 lb for at least 2 more weeks. She can follow up on a p.r.n. basis. Quality Reporting (2019) Adult ([facility] ) Smoking risk assessment performed?: Yes Patient Tobacco Use Status: Former Tobacco user Coding Level of Care Code Global (25785) Diagnoses Incisional hernia K43.2
[2022-12-24 08:40] VITALS: BP 132/69; PULSE 73; BMI 29.2
== END 2022-12-24 08:54 | disposition home or self-care (01) ==
PROVIDERS: PCP Internal Medicine; Visit Provider Surgery
DX: K43.2 Incisional hernia without obstruction or gangrene (principal)
CPT/HCPCS: 99213

== ENCOUNTER → 2022-12-24 08:32 | Outpatient (BNVA) | payer OTHER, SELFPAY | PROVIDERS: PCP Internal Medicine; Visit Provider Surgery | DX: Z48.815 Encounter for surgical aftercare following surgery on the digestive system (principal); Z87.19 Personal history of other diseases of the digestive system | CPT/HCPCS: 99212 ==

== ENCOUNTER 2023-07-07 09:52 | Outpatient (AMB) | payer OTHER, SELFPAY ==
--- NOTE | 2023-07-07 10:01 | A.OFFPC_ITS ---
Vital Signs 07/07/23 10:02 Height 5 ft 4 in Weight 169 lb BMI 29.0 BP 128/70 Blood Pressure Location Lt brachial Position Sitting Intake Visit Reasons: Annual Exam Intake Note: Patient here for an annual physical exam Machine Tool Mechanic Required: No Accompanied by: Self / Same As Patient Allergies No Known Allergies [No Known Allergies*] Allergy (Verified 07/07/23 10:23) Medication List - Last Reconciled 07/07/23 by Carmelita Goncalves MD hydrochlorothiazide 25 mg PO DAILY ibuprofen 800 mg PO Q8H PRN 30 days levocetirizine (Xyzal) 5 mg PO DAILY rosuvastatin 5 mg PO DAILY Tobacco use date assessed: 07/07/23 Fall risk assessment: No Falls in past year Last assessed Fall Risk: 07/07/23 Dental Screening Dental Screen Date: 07/07/23 Did you have a dental visit in the last 12 months?: No Did you have a dental problem in the last 6 months where you did not have access to dental care?: No Was dental information given to patient?: Patient has dentist HPI HPI Comments History of Present Illness Details This is a 67-year-old female that comes for her physical exam. Last colonoscopy was 2022 and last Pap smear was 2022. Last mammogram was also 2022. She denies any chest pain or shortness of breath. Has history of colon cancer few years ago that resolved with treatment and is doing fine. [facility] Medical History Incisional hernia History of colon cancer Impaired glucose tolerance Pure hypercholesterolemia Urticaria Migraines Essential hypertension Surgical History History of incisional hernia repair (~2022) History of hernia surgery Hx of colonoscopy History of incisional hernia repair History of ileostomy History of hemicolectomy History of tubal ligation Family History Father Throat cancer Mother Diabetes Sister Uterine cancer Brother Lung cancer Social History Housing: Apartment Alcohol intake: never Patient Tobacco Use Status: Former Tobacco user Quit Date: >20 yrs ago Tobacco use type: Cigarette e-Cigarette/Vaping Use: Never Used Second Hand Smoke Exposure: No service: No Current occupational status: disabled Sexual orientation: Straight/Heterosexual Gender identity: Female Cognitive needs: No Hearing needs: No Vision needs: No Questionnaire PHQ-9 Over the last 2 weeks, how often have you been bothered by any of the following problems? 1. Little interest or pleasure in doing things: not at all 2. Feeling down, depressed, or hopeless: not at all 3. Trouble falling or staying asleep, or sleeping too much: not at all 4. Feeling tired or having little energy: not at all 5. Poor appetite or overeating: not at all 6. Feeling bad about yourself - or that you are a failure or have let yourself or your family down: not at all 7. Trouble concentrating on things, such as reading the newspaper or watching television: not at all 8. Moving or speaking so slowly that other people could have noticed. Or the opposite - being so fidgety or restless that you have been moving around a lot more than usual: not at all 9. Thoughts that you would be better off or of hurting yourself in some way: not at all Total score: 0 Depression Screening Interpretation: Negative Depression Screening Done: Yes 87889 - PHQ-9 Billing: Yes Source: Developed by Drs. Jag Oropeza, Ami Oneill, Alex Castanon and colleagues, with an educational kianna from [employer]. Thrive Questionnaire Date Thrive assessed: 07/07/23 I am a: Patient What is your living situation today?: I have a steady place to live Within the past 12 months, did the food you bought not last and you didn't have the money to get more?: Never true Within the past 12 months, did you worry whether your food would run out before you got money to buy more?: Never true Do you have trouble paying for medicines?: No Do you have trouble getting transportation to medical appointments?: No Do you have trouble paying your heating and electricity bill?: No Do you have trouble taking care of your child, family member or friend?: No Do you have trouble with day-to-day activities such as bathing, preparing meals, shopping, managing finances, etc.?: No Are you currently unemployed and looking for a job?: No Are you interested in more education?: No Please select the resources that you would like help with: None Currently or been in a relationship where the following occur: no concerns reported THRIVE Score: 0 AUDIT C Alcohol Use Questionnaire (AUDIT-C) 1. How often do you have a drink containing alcohol?: Never Total Score: 0 Score Reviewed/Action Taken: No EVELYN-7 AMB Questionnaire EVELYN-7 Date EVELYN - 7 assessed: 07/07/23 Feeling nervous, anxious, or on edge: 0 = Not at all Not being able to stop or control worryin = Not at all Worrying too much about different things: 0 = Not at all Trouble relaxin = Not at all Being so restless that it is hard to sit still: 0 = Not at all Becoming easily annoyed or irritable: 0 = Not at all Feeling afraid as if something awful might happen: 0 = Not at all Total EVELYN-7 score (0-4 normal; 5-9 mild; 10-14 moderate; 15-21 severe): 0 Source: Developed by Drs. Jag Oropeza, Ami Oneill, Alex Castanon and colleagues, with an educational kianna from [employer]. EVELYN-7 Assessment Billing EVELYN-7 Assessment Tool: EVELYN-7 Assessment 46663 Review of Systems Const All systems reviewed & are unremarkable except as noted in HPI and below Eyes Reports no additional complaints, Denies change in vision and Denies other visual disturbances Card Denies chest pain at rest, Denies chest pain with activity, Denies edema, Denies irregular heart rhythm, Denies claudication, Denies dyspnea, Denies dyspnea on exertion, Denies orthopnea, Denies paroxysmal nocturnal dyspnea and Denies slow heart rate Resp Denies cough, Denies dyspnea and Denies dyspnea on exertion GI Denies abdominal pain, Denies change in bowel habits, Denies excessive flatus, Denies nausea and Denies vomiting Denies urinary incontinence, Denies urinary hesitancy and Denies urinary urgency Musc Denies abnormal gait, Denies atrophy, Denies deformity and Denies limited range of motion Skin/Breast Denies bleeding lesions, Denies changing lesions and Denies rash Neuro Denies abnormal gait, Denies behavioral changes, Denies confusion and Denies lack of coordination Psych Denies behavioral changes and Denies confusion Physical exam (Primary Care) Vital Signs: Last Vital Signs BP 128/70 07/07/23 10:02 BMI result Body Mass Index 29.0 Tobacco/Smoking Status: Tobacco use Status Tobacco use date assessed 07/07/23 07/07/23 10:07 Patient Tobacco Use Status Former Tobacco user 07/07/23 10:07 Tobacco use type Cigarette 07/07/23 10:07 e-Cigarette/Vaping Use Never Used 07/07/23 10:07 PHQ-9: PHQ-9 Score PHQ-9: Total score 0 07/07/23 10:39 Depression Screening Interpretation: Negative Thrive Assessment: Date of Thrive Assessment Date Thrive assessed 07/07/23 07/07/23 10:07 Currently or been in a relationship where the following occur: no concerns reported Const General: No confusion Orientation/consciousness: patient oriented x3 and No confusion HENMT Head: Yes normal to inspection, Yes normocephalic and Yes atraumatic Ears: external ears normal Eyes General: appearance normal, both eyes and all related structures Eyelids: Yes eyelids normal Conjunctivae: conjunctivae normal Neck Neck: Yes normal visual inspection and Yes supple Resp Effort & Inspection: normal respiratory effort Auscultation: clear to auscultation bilaterally Cardio Jugular venous distension: no JVD Rate: regular rate Rhythm: regular rhythm Heart sounds: S1 normal heart sound present and S2 normal heart sound present GI Inspection: Yes normal to inspection Palpation (GI): Soft to palpation and nontender Auscultation: normal bowel sounds Skin General skin exam: no rashes or lesions noted Neuro General: patient oriented x3, no focal motor deficits and No confusion Extrem General: Yes full ROM Psych Appearance: grossly normal Immunizations pneumoc 20-corazon conj-dip cr(PF) 0.5 mL IM syringe Performing Provider: Carmelita Goncalves MD Performing Location: [facility] Administered by: LISA Morton on 07/07/23 10:53 Dose Route Admin Location Dispensed Lot Number Expiration Date NDC Client Resolution Specialist 0.5 mL IM Left Deltoid 0.5 mL [id number] 07/22/24 9090-9845-24 WYETH/PFIZER VIS Given Date VIS Provided VIS Publication Date 07/07/23 Single Vaccine 21 Eligibility Eligibility Date Funding Source Not [facility] Eligible 02/14/24 Private Assessment and Plan Assessment & Plan (1) Physical exam: Code(s): Z00.00 - Encounter for general adult medical examination without abnormal findings Plan: Repeat in a year. Orders: Orders Pneumococcal 20 Immunization Today Z23 - Encounter for immunization Coding Level of Care Code Est Pt Prev Care >65y(35292) Diagnoses Physical exam Z00.00 Additional Codes EVELYN-7 Assessment Billing - EVELYN-7 Assessment Tool: EVELYN-7 Assessment 92997 ([id number]) Time Spent (min) 33
[2023-07-07 10:02] VITALS: BP 128/70; BMI 29.0
== END 2023-07-07 10:42 | disposition home or self-care (01) ==
PROVIDERS: PCP Internal Medicine; Visit Provider Internal Medicine
DX: Z00.00 Encounter for general adult medical examination without abnormal findings (principal); Z23 Encounter for immunization
CPT/HCPCS: 90471; 90677; 99397

== ENCOUNTER 2023-08-18 10:58 | Outpatient (REF) | payer MEDICARE, SELFPAY ==
--- NOTE | ~2023-08-18 | MM_ITS ---
EXAMINATION: MM SCREENING DIGITAL BREAST TOMOSYNTHESIS, BILATERAL CLINICAL INFORMATION: Screening. Asymptomatic. COMPARISON: Mammography: This study is compared with prior exams dating back to TECHNIQUE: Digital breast tomosynthesis is performed in both the craniocaudal and mediolateral oblique views along with computer-aided detection (CAD). Synthesized 2D images are generated from the tomosynthesis. FINDINGS: There are scattered areas of fibroglandular density (ACR BI-RADS breast composition Category b). There are no significant masses, abnormal calcifications, or other abnormalities. Few, bilateral benign calcifications are present in each breast. MM/MM tomosynthesis screening BI IMPRESSION: No mammographic evidence of malignancy. ASSESSMENT: BI-RADS BI-RADS 2 - Benign Findings RECOMMENDATION: Routine annual mammography screening. 1 year F/U This examination should not preclude the clinical evaluation of a suspicious palpable abnormality. This patient's information was entered into a reminder system with a target due date for their next mammogram.
== END 2023-08-18 10:59 | disposition home or self-care (01) ==
LOC: HO.MAMMO 10:58
PROVIDERS: PCP Internal Medicine; Visit Provider Internal Medicine
DX: Z12.31 Encounter for screening mammogram for malignant neoplasm of breast (principal)
CPT/HCPCS: 77063; 77067

== ENCOUNTER → 2023-08-18 11:15 | Outpatient (BNV) | payer MEDICARE, SELFPAY | PROVIDERS: PCP Internal Medicine; Visit Provider Radiology Diagnostic Radiology | DX: Z12.31 Encounter for screening mammogram for malignant neoplasm of breast (principal) | CPT/HCPCS: 77063; 77067 ==

== ENCOUNTER 2023-10-14 14:04 | Outpatient (AMB) | payer MEDICARE, SELFPAY ==
--- NOTE | 2023-10-14 14:07 | MHC.OFFVIS ---
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 She is doing well with no concerns. Attempting to eat a healthy diet with calcium and vitamin D and stays active with exercise. Currently not sexually active. Denies any vaginal dryness or irritation. STI testing offered; she declines. Last pap smear; 2022, negative. Last mammogram; 2023. Colonoscopy is UTD. Denies any family history of breast, ovarian or colon cancer. [facility] Medical History Incisional hernia History of colon cancer Impaired glucose tolerance Pure hypercholesterolemia Urticaria Migraines Essential hypertension Surgical History History of incisional hernia repair (~2022) History of hernia surgery Hx of colonoscopy History of incisional hernia repair History of ileostomy History of hemicolectomy History of tubal ligation Family History Father Throat cancer Mother Diabetes Sister Uterine cancer Brother Lung cancer Social History Housing: Apartment Alcohol intake: never Patient Tobacco Use Status: Former Tobacco user Quit Date: >20 yrs ago Tobacco use type: Cigarette e-Cigarette/Vaping Use: Never Used Second Hand Smoke Exposure: No Patient : No service: No Current occupational status: disabled Sexual orientation: Straight/Heterosexual Gender identity: Female Cognitive needs: No Hearing needs: No Vision needs: No Female Reproductive History Menstrual Age of Menarche: 13 control method: permanent sterilization Total pregnancies: 1 Full term: 1 Number of Living Children: 1 Date of last pap smear: 10/13/22 (negative) History of abnormal pap smear: No Date of Mammogram: 08/18/23 Review of Systems Const All systems reviewed & are unremarkable except as noted in HPI and below Reports as per HPI Eyes Reports no additional complaints ENT Reports no additional complaints Card Reports no additional complaints Resp Reports no additional complaints GI Reports as per HPI and Reports no additional complaints Reports as per HPI Musc Reports no additional complaints Skin/Breast Reports as per HPI Neuro Reports no additional complaints Psych Reports no additional complaints Endo Reports no additional complaints Chano/Lymph Reports no additional complaints Aller/Immun Reports no additional complaints Physical Exam Vital Signs: Last Vital Signs BP 124/62 10/14/23 14:45 BMI result Body Mass Index 28.8 Const General: cooperative, healthy appearing, no acute distress, well developed and alert Orientation/consciousness: patient oriented x3 HEENT Head: Yes normal to inspection Eyes General: appearance normal, both eyes and all related structures Neck Neck: Yes normal visual inspection Thyroid: Thyroid normal Chest Chest palpation & inspection: normal inspection of the chest and other (no puckering, dimpling, peau de orange, retraction, discharge, masses) Breast/axilla inspection: normal inspection of the breasts Breast/axilla palpation: normal palpation of the breasts Resp Effort & Inspection: normal respiratory effort GI Inspection: Yes normal to inspection Palpation (GI): Soft to palpation Rectal Exam - Female: deferred General: Yes bladder normal to palpation External Female Exam: normal external appearance and normal appearance of the urethra Speculum Exam - Vagina: normal appearance of the vagina, normal palpation, normal vaginal discharge and vagina atrophic Speculum Exam - Cervix: normal appearance of the cervix and normal palpation Bimanual exam- vagina & uterus: normal bimanual exam, normal palpation, uterine size normal, bladder normal to palpation, normal palpation and non-tender Bimanual Exam- Adnexa, other: no masses Skin General skin exam: no rashes or lesions noted Rashes: no rashes Neuro General: patient oriented x3 Cognition (Neuro): normal cognition Extrem General: Yes normal to inspection Psych Attitude: cooperative Thought process: Normal thought process present Quality Reporting (2019) Adult ([facility] 138/07/15/68) Smoking risk assessment performed?: Yes Patient Tobacco Use Status: Former Tobacco user Assessment & Plan Assessment & Plan (1) Encounter for well woman exam with routine gynecological exam: Code(s): Z01.419 - Encounter for gynecological examination (general) (routine) without abnormal findings Category: Medical Plan: Discussed: Current recommendations for pap smears per ASCCP guidelines. Breast awareness, periodic self breast exams and yearly mammogram. Maintain a healthy lifestyle, well balanced diet including Calcium 1,200 mg and Vitamin D 600 IU daily, and routine exercise. Contact the office with any postmenopausal bleeding. Patient verbalizes understanding and agrees to the plan of care. She was given opportunity to ask questions and all questions were answered to the best of my ability. RTO in 1 year for annual gynecological assistant exam. This note is constructed using voice recognition software. While every effort has been made to ensure accuracy, dirt supervisor errors may have been included. Coding Level of Care Code Est Pt Prev Care >65y(75242) Diagnoses Encounter for well woman exam with routine gynecological exam Z01.419
[2023-10-14 14:45] VITALS: BP 124/62; BMI 28.8
== END 2023-10-14 15:34 | disposition home or self-care (01) ==
LOC: HO.HWS 14:04
PROVIDERS: PCP Internal Medicine; Visit Provider Advanced Practice Midwife
DX: Z01.419 Encounter for gynecological examination (general) (routine) without abnormal findings (principal)
CPT/HCPCS: 99397

== ENCOUNTER → 2023-10-14 14:04 | Outpatient (BNVA) | payer MEDICARE, SELFPAY | PROVIDERS: PCP Internal Medicine; Visit Provider Advanced Practice Midwife ==

== ENCOUNTER 2024-01-06 09:36 | Outpatient (AMB) | payer OTHER, SELFPAY ==
--- NOTE | 2024-01-06 09:38 | MHC.PC.OV ---
Vital Signs 01/06/24 09:39 Height 5 ft 4 in Weight 166 lb BMI 28.5 BP 118/70 Blood Pressure Location Lt brachial Position Sitting Intake Visit Reasons: bp Intake Note: Patient here for a follow up BP Ordnance Officer Required: No Accompanied by: Self / Same As Patient Allergies No Known Allergies [No Known Allergies*] Allergy (Verified 01/06/24 09:48) Medication List - Last Reconciled 01/06/24 by Carmelita Goncalves MD hydrochlorothiazide 25 mg PO DAILY ibuprofen 800 mg PO Q8H PRN 30 days levocetirizine (Xyzal) 5 mg PO DAILY rosuvastatin 5 mg PO DAILY Tobacco use date assessed: 07/07/23 Fall risk assessment: No Falls in past year Last assessed Fall Risk: 01/06/24 Dental Screening Dental Screen Date: 01/06/24 Did you have a dental visit in the last 12 months?: No Did you have a dental problem in the last 6 months where you did not have access to dental care?: No Was dental information given to patient?: Patient has dentist HPI HPI Comments History of Present Illness Details This is a 68-year-old female with hypertension, pure hypercholesterolemia, lumbar pain and allergic rhinitis that comes today for follow-up on her conditions. Blood pressure stable. Cholesterol well controlled. Has lumbar pain stable with ibuprofen as needed. On antihistamines for allergic rhinitis. No chest pain or shortness on breath. [facility] Medical History (Updated 01/06/24 @ 10:18 by Carmelita Goncalves MD) Incisional hernia History of colon cancer Impaired glucose tolerance Pure hypercholesterolemia Urticaria Migraines Essential hypertension Surgical History History of incisional hernia repair (~2022) History of hernia surgery Hx of colonoscopy History of incisional hernia repair History of ileostomy History of hemicolectomy History of tubal ligation Family History Father Throat cancer Mother Diabetes Sister Uterine cancer Brother Lung cancer Social History Housing: Apartment Alcohol intake: never Patient Tobacco Use Status: Former Tobacco user Tobacco use type: Cigarette e-Cigarette/Vaping Use: Never Used Second Hand Smoke Exposure: No service: No Current occupational status: disabled Sexual orientation: Straight/Heterosexual Gender identity: Female Cognitive needs: No Hearing needs: No Vision needs: No Female Reproductive History Menstrual Age of Menarche: 13 Questionnaire Thrive Questionnaire Date Thrive assessed: 07/07/23 EVELYN-7 AMB Questionnaire EVELYN-7 Date EVELYN - 7 assessed: 07/07/23 Source: Developed by Drs. Jag Oropeza, Ami Oneill, Alex Castanon and colleagues, with an educational kianna from [employer]. Review of Systems Const All systems reviewed & are unremarkable except as noted in HPI and below Card Denies chest pain at rest, Denies chest pain with activity, Denies edema, Denies irregular heart rhythm, Denies claudication, Denies dyspnea, Denies dyspnea on exertion, Denies orthopnea, Denies paroxysmal nocturnal dyspnea and Denies slow heart rate Resp Denies cough, Denies dyspnea and Denies dyspnea on exertion GI Denies abdominal pain, Denies change in bowel habits, Denies excessive flatus, Denies nausea and Denies vomiting Denies urinary incontinence, Denies urinary hesitancy and Denies urinary urgency Physical exam (Primary Care) Vital Signs: Last Vital Signs BP 118/70 01/06/24 09:39 BMI result Body Mass Index 28.5 Tobacco/Smoking Status: Tobacco use Status Tobacco use date assessed 07/07/23 01/06/24 09:40 Patient Tobacco Use Status Former Tobacco user 01/06/24 09:40 Tobacco use type Cigarette 01/06/24 09:40 e-Cigarette/Vaping Use Never Used 01/06/24 09:40 Thrive Assessment: Date of Thrive Assessment Date Thrive assessed 07/07/23 01/06/24 09:40 Resp Effort & Inspection: normal respiratory effort Auscultation: clear to auscultation bilaterally Cardio Jugular venous distension: no JVD Rate: regular rate Rhythm: regular rhythm Heart sounds: S1 normal heart sound present and S2 normal heart sound present Extrem General: Yes full ROM Assessment and Plan Assessment & Plan (1) Essential hypertension: Code(s): I10 - Essential (primary) hypertension Plan: Continue hydrochlorothiazide. Blood pressure goal is equal or less than 130/80. (2) Pure hypercholesterolemia: Code(s): E78.00 - Pure hypercholesterolemia, unspecified Plan: Continue statins. (3) Allergic rhinitis: Code(s): J30.9 - Allergic rhinitis, unspecified Qualifiers: Allergic rhinitis trigger: pollen Allergic rhinitis seasonality: seasonal Qualified Code(s): J30.1 - Allergic rhinitis due to pollen Plan: Continue antihistamines as needed. (4) Lumbar pain: Code(s): M54.50 - Low back pain, unspecified Plan: Continue ibuprofen as needed. Orders: Orders Lipid Panel 6 Months E78.5 - Hyperlipidemia, unspecified Comprehensive Met. Panel 6 Months I10 - Essential (primary) hypertension Medications: Refilled ibuprofen 800 mg PO Q8H PRN 90 tabs 2RF pain 30 days I10 - Essential (primary) hypertension Coding Level of Care Code Est Pt Level 4 (05508) Complex EM visit Add On G2211 Diagnoses Essential hypertension I10 Pure hypercholesterolemia E78.00 Seasonal allergic rhinitis due to pollen J30.1 Allergic rhinitis trigger: pollen Allergic rhinitis seasonality: seasonal Lumbar pain M54.50 Time Spent (min) 21
[2024-01-06 09:39] VITALS: BP 118/70; BMI 28.5
== END 2024-01-06 10:00 | disposition home or self-care (01) ==
PROVIDERS: PCP Internal Medicine; Visit Provider Internal Medicine
DX: I10 Essential (primary) hypertension (principal); E78.00 Pure hypercholesterolemia, unspecified; J30.1 Allergic rhinitis due to pollen; M54.50 Low back pain, unspecified
CPT/HCPCS: 99214; G2211

== ENCOUNTER 2024-06-27 08:38 | Outpatient (REF) | payer MEDICARE, SELFPAY ==
--- OUTSIDE RECORDS SUMMARY | 2024-06-27 08:55 | XMS_ITS | Clinical Summary ---
Author Organization [facility] Address [address] [place] [address] Care Team Providers Care Cold Working Inspector Name Role Phone Carmelita Goncalves MD Primary Care Provider [phone] Surgical History Surgery Date Site/Laterality Comments COLON SURGERY PROCEDURE:COLON SURGERY COLONOSCOPY PROCEDURE:COLONOSCOPY PORTACATH PLACEMENT PROCEDURE:PORTACATH PLACEMENT TUBAL LIGATION PROCEDURE:TUBAL LIGATION Medical History Medical History Date Comments Colon cancer (CMS/HCC) DX:Colon cancer (HCC) H/O inguinal hernia repair 07/15/2018 DX:H/ O inguinal hernia repair Family History Medical History Relation Name Comments Cancer Father Cancer Sister Relation Name Status Comments Father Sister Social History Tobacco Use Types Packs/Day Years Used Date Smoking Tobacco: Former Smokeless Tobacco: Never Alcohol Use Standard Drinks/Week Comments No 0 (1 standard drink = 0.6 oz pur e alcohol) Sex and Gender Information Value Date Recorded Sex Assigned at Not on file Gender Identity Not on file Sexual Orientation Not on file Obstetrics History Last Filed Vital Signs Vital Sign Reading Time Taken Comments Blood Pressure 123/57 08/28/2022 11:28 AM EDT Sitting Right arm Pulse 73 08/28/2022 11:28 AM EDT Temperature - - Respiratory Rate - - Oxygen Saturation - - Inhaled Oxygen Concentration - - Weight 79.8 kg (176 lb) 08/28/2022 11:2 8 AM EDT Height 162.6 cm (5' 4 ) 08/28/2022 11:2 8 AM EDT Body Mass Index 30.21 08/28/2022 11:28 AM EDT Plan of Treatment Health Maintenance Due Date Last Done Comments Breast Cancer Screening 1955 DTaP,Tdap,and Td Vaccines (1 - Tdap) 1976 Zoster Vaccines (1 of 2) 10/08/2007 Colorectal Cancer Screening: Colonoscopy 04/30/2022 Depression Screening 04/30/2022 Hepatitis C Screening 04/30/2022 Osteoporosis Screening (Bone Density Screening) 04/30/2022 Social Influencers of Health Screening 04/30/2022 Falls Risk Assessment 2022 Pneumococcal Vaccine: 65+ Ye ars (1 of 1 - PCV) 2022 COVID-19 Vaccine (1 - 2023-2 5 season) 2024 Influenza Vaccine (#1) 2024 RSV Immunization Patients 60 + Years Old (1 - 1-dose 75+ series) 2032 HIB Vaccines Aged Out No longer eligi ble based on patient's age to complete this topic HPV Vaccines Aged Out No longer eligi ble based on patient's age to complete this topic Hepatitis A Vaccines Aged Out No long er eligible based on patient's age to complete this topic Hepatitis B Vaccines Aged Out No long er eligible based on patient's age to complete this topic IPV Vaccines Aged Out No longer eligi ble based on patient's age to complete this topic MMR Vaccines Aged Out No longer eligi ble based on patient's age to complete this topic Meningococcal ACWY Vaccine Aged Out N o longer eligible based on patient's age to complete this topic RSV Immunization Patients Un gertrudis 20 months Aged Out No longer eligible b ased on patient's age to complete this topic Varicella Vaccines Aged Out No longer eligible based on patient's age to complete this topic Care Teams Cold Working Inspector Relationship Specialty Start Date End Date Carmelita Goncalves MD [address] [place] [address] , [address] Physician Associ D[facility]B/A: [facility] KATIE Alvarez PCP - General Internal Medicine 11/10/16
[2024-06-27 09:46] LABS: Alanine Aminotransferase 19 U/L (0-31); Albumin Level 4.2 g/dL (3.5-5.0); Alkaline Phosphatase 61 U/L (39-117); Anion Gap 14 (12-20); Aspartate Amino Transferase 23 U/L (5-31); Bilirubin Total 0.6 mg/dL (0.0-1.0); Blood Urea Nitrogen 13 mg/dL (9-16); Calcium 9.2 mg/dL (8.4-10.2); Carbon Dioxide 27 mmol/L (22-29); Chloride 106 mmol/L (96-108); Cholesterol 160 mg/dL (<200); Estimated Glomerular Filt Rate > 60; Glucose Random 110 mg/dL (60-115); HDL Cholesterol 49 mg/dL (>40); LDL Cholesterol Calculated 88 mg/dL (<100); Potassium 3.3 mmol/L (3.3-5.1); Sodium 144 mmol/L (135-145); Total Protein 7.2 g/dL (6.5-8.0); Triglycerides 117 mg/dL (<150)
== END 2024-06-27 08:39 | disposition home or self-care (01) ==
LOC: HO.LAB 08:38
PROVIDERS: PCP Internal Medicine; Visit Provider Internal Medicine
DX: I10 Essential (primary) hypertension (principal); E78.5 Hyperlipidemia, unspecified
CPT/HCPCS: 36415; 80053; 80061

== ENCOUNTER 2024-07-06 09:18 | Outpatient (AMB) | payer MEDICARE, SELFPAY ==
--- NOTE | 2024-07-06 09:19 | MHC.PC.OV ---
Vital Signs 07/06/24 09:20 Height 5 ft 4 in Weight 174 lb BMI 29.9 BP 130/82 Blood Pressure Location Lt brachial Position Sitting Intake Visit Reasons: Annual Exam Intake Note: Patient here for an annual physical exam Advanced Research Programs Director Required: Yes Advanced Research Programs Director Language: Fig Bar Machine Operator Name: Carmelita Goncalves MD Information Interpreted: non-clinical & clinical Accompanied by: Self / Same As Patient Allergies No Known Allergies [No Known Allergies*] Allergy (Verified 07/06/24 09:40) Medication List - Last Reconciled 07/06/24 by Carmelita Goncalves MD hydrochlorothiazide 25 mg PO DAILY ibuprofen 800 mg PO Q8H PRN 30 days levocetirizine (Xyzal) 5 mg PO DAILY rosuvastatin 5 mg PO DAILY Tobacco use date assessed: 07/06/24 Fall risk assessment: No Falls in past year Last assessed Fall Risk: 07/06/24 Dental Screening Dental Screen Date: 07/06/24 Did you have a dental visit in the last 12 months?: No Did you have a dental problem in the last 6 months where you did not have access to dental care?: No Was dental information given to patient?: Patient has dentist HPI HPI Comments History of Present Illness Details The patient is a 68-year-old female presenting with knee pain for evaluation during her annual physical examination. The knee pain began subsequent to a move in March, which required frequent stair climbing. The pain is located in the knee joint, possibly related to osteoarthritis. She reports that the knee pain was exacerbated during the relocation when residing on the third floor, indicating frequent stair use as an aggravating factor. The pain intensity and its impact on her function was not explicitly detailed. The patient's past medical history includes essential hypertension effectively managed with hydrochlorothiazide, allergic rhinitis controlled with Xysal, dyslipidemia treated with rosuvastatin 5 mg, and a significant past medical history of colon cancer diagnosed in 2016 which required hemicolectomy and ileostomy, and later, the reversal of the colostomy. Her previous cancer-related surgery appears to have no lingering discomfort or dysfunction, and her colonic function was mostly normal with persistent historical constipation. She maintains regular ibuprofen use when necessary for pain management. She denies current use of alcohol and has previously smoked, but is now a non-smoker. - Last mammogram was conducted in the previous year. - Pap smear and colonoscopy were completed in 2022. - Vaccination against pneumococcal disease was administered at age 67. - Tetanus vaccination status is currently due. [facility] Medical History Incisional hernia History of colon cancer Impaired glucose tolerance Pure hypercholesterolemia Urticaria Migraines Essential hypertension Surgical History History of incisional hernia repair (~2022) History of hernia surgery Hx of colonoscopy History of incisional hernia repair History of ileostomy History of hemicolectomy History of tubal ligation Family History Father Throat cancer Mother Diabetes Sister Uterine cancer Brother Lung cancer Social History Housing: Apartment Alcohol intake: never Patient Tobacco Use Status: Former Tobacco user Tobacco use type: Cigarette e-Cigarette/Vaping Use: Never Used Second Hand Smoke Exposure: No service: No Current occupational status: disabled Sexual orientation: Straight/Heterosexual Gender identity: Female Cognitive needs: No Hearing needs: No Vision needs: No Female Reproductive History Menstrual Age of Menarche: 13 Questionnaire PHQ-9 Over the last 2 weeks, how often have you been bothered by any of the following problems? 1. Little interest or pleasure in doing things: not at all 2. Feeling down, depressed, or hopeless: not at all 3. Trouble falling or staying asleep, or sleeping too much: not at all 4. Feeling tired or having little energy: several days 5. Poor appetite or overeating: not at all 6. Feeling bad about yourself - or that you are a failure or have let yourself or your family down: not at all 7. Trouble concentrating on things, such as reading the newspaper or watching television: not at all 8. Moving or speaking so slowly that other people could have noticed. Or the opposite - being so fidgety or restless that you have been moving around a lot more than usual: not at all 9. Thoughts that you would be better off or of hurting yourself in some way: not at all Total score: 1 Depression Screening Interpretation: Negative Depression Screening Done: Yes 54335 - PHQ-9 Billing: Yes Source: Developed by Drs. Jag Oropeza, Ami Oneill, Alex Castanon and colleagues, with an educational kianna from [employer] Thrive Questionnaire Date Thrive assessed: 07/06/24 I am a: Patient What is your living situation today?: I have a steady place to live Within the past 12 months, did the food you bought not last and you didn't have the money to get more?: Never true Within the past 12 months, did you worry whether your food would run out before you got money to buy more?: Never true Do you have trouble paying for medicines?: No Do you have trouble getting transportation to medical appointments?: No Do you have trouble paying your heating and electricity bill?: No Do you have trouble taking care of your child, family member or friend?: No Do you have trouble with day-to-day activities such as bathing, preparing meals, shopping, managing finances, etc.?: No Are you currently unemployed and looking for a job?: No Are you interested in more education?: No Please select the resources that you would like help with: None Currently or been in a relationship where the following occur: I choose not to answer THRIVE Score: 0 AUDIT C Alcohol Use Questionnaire (AUDIT-C) 1. How often do you have a drink containing alcohol?: Never Total Score: 0 Score Reviewed/Action Taken: No EVELYN-7 AMB Questionnaire EVELYN-7 Date EVELYN - 7 assessed: 07/06/24 Feeling nervous, anxious, or on edge: 0 = Not at all Not being able to stop or control worryin = Not at all Worrying too much about different things: 0 = Not at all Trouble relaxin = Not at all Being so restless that it is hard to sit still: 0 = Not at all Becoming easily annoyed or irritable: 0 = Not at all Feeling afraid as if something awful might happen: 0 = Not at all Total EVELYN-7 score (0-4 normal; 5-9 mild; 10-14 moderate; 15-21 severe): 0 Source: Developed by Drs. Jag Oropeza, Alex Amaya and colleagues, with an educational kianna from [employer] EVELYN-7 Assessment Billing EVELYN-7 Assessment Tool: EVELYN-7 Assessment 27356 Review of Systems Const All systems reviewed & are unremarkable except as noted in HPI and below Card Denies chest pain at rest, Denies chest pain with activity, Denies edema, Denies irregular heart rhythm, Denies claudication, Denies dyspnea, Denies dyspnea on exertion, Denies orthopnea, Denies paroxysmal nocturnal dyspnea and Denies slow heart rate Resp Denies cough, Denies dyspnea and Denies dyspnea on exertion GI Denies abdominal pain, Denies change in bowel habits, Denies excessive flatus, Denies nausea and Denies vomiting Musc Reports arthralgias Neuro Denies behavioral changes and Denies lack of coordination Psych Denies behavioral changes Endo Denies cold intolerance Chano/Lymph Denies easy bleeding and Denies easy bruising Aller/Immun Denies urticaria Physical exam (Primary Care) Vital Signs: Last Vital Signs BP 130/82 07/06/24 09:20 BMI result Body Mass Index 29.9 Tobacco/Smoking Status: Tobacco use Status Tobacco use date assessed 07/06/24 07/06/24 09:28 Patient Tobacco Use Status Former Tobacco user 07/06/24 09:26 Tobacco use type Cigarette 07/06/24 09:26 e-Cigarette/Vaping Use Never Used 07/06/24 09:26 PHQ-9: PHQ-9 Score PHQ-9: Total score 1 07/06/24 09:42 Depression Screening Interpretation: Negative Thrive Assessment: Date of Thrive Assessment Date Thrive assessed 07/06/24 07/06/24 09:26 Currently or been in a relationship where the following occur: I choose not to answer [facility] Head: Yes normal to inspection, Yes normocephalic and Yes atraumatic Ears: external ears normal Eyes General: appearance normal, both eyes and all related structures Eyelids: Yes eyelids normal Conjunctivae: conjunctivae normal Neck Neck: Yes normal visual inspection and Yes supple Resp Effort & Inspection: normal respiratory effort Auscultation: clear to auscultation bilaterally Cardio Jugular venous distension: no JVD Rate: regular rate Rhythm: regular rhythm Heart sounds: S1 normal heart sound present and S2 normal heart sound present GI Inspection: Yes normal to inspection Palpation (GI): Soft to palpation and nontender Auscultation: normal bowel sounds Skin General skin exam: no rashes or lesions noted Neuro General: no focal motor deficits Extrem General: Yes full ROM Left lower extremity: knee Details: tenderness Psych Appearance: grossly normal Office Procedures Flu Questionnaire Does the patient have a severe egg allergy?: No Immunizations Fluarix Triv [id number] (PF) 45 mcg (15 mcg x 3)/0.5 mL IM syringe Performing Provider: Carmelita Goncalves MD [facility] Documented (not given) by: LISA Morton on 07/06/24 09:28 Reason Not Given: Patient Refused Coding Level of Care Code Est Pt Level 3 (34394) Est Pt Prev Care >65y(48892) Diagnoses Physical exam Z00.00 Left knee pain M25.562 Additional Codes EVELYN-7 Assessment Billing - EVELYN-7 Assessment Tool: EVELYN-7 Assessment 13196 ([id number]) PHQ-9 - 55967 - PHQ-9 Billing: Yes ([id number]) Time Spent (min) 32 Assessment & Plan Assessment & Plan (1) Physical exam: Code(s): Z00.00 - Encounter for general adult medical examination without abnormal findings Category: Medical (2) Left knee pain: Code(s): M25.562 - Pain in left knee Category: Medical Plan - Consider administration of the tetanus vaccination. - Continue current antihypertensive regimen with hydrochlorothiazide. - Use ibuprofen as needed for knee pain control. - Monitor blood pressure and glycemic control; values currently within optimal range. - Encourage regular cardiovascular exercise within patient tolerance to support systemic health and musculoskeletal function. - Refer to orthopedics if knee pain persists or fails to improve with conservative measures. Patient was informed and verbally consented to the use of an ambient scribe for clinic note documentation during this visit. During our discussion, I reviewed the patient's medical history, emphasizing the importance of continuing hypertension and dyslipidemia management. I highlighted the effectiveness of current medications and lifestyle adjustments in maintaining her health. We discussed the potential benefit of physical therapy or gentle exercise to alleviate knee discomfort and prevent further musculoskeletal issues. I informed the patient of the need for a tetanus booster, which was deferred, and emphasized continuation of her current health maintenance activities, including periodic screenings and vaccinations. Orders: Orders XR knee LT 2V Today M25.562 - Pain in left knee Influenza 2623-2666 Immunization Today Z23 - Encounter for immunization Referrals Orthopedics Referral M25.562 - Pain in left knee Patient Instructions: - Schedule a tetanus vaccination as soon as possible. - Continue prescribed medication regimen for hypertension and dyslipidemia. - Use ibuprofen for knee pain as needed. - Maintain regular follow-ups for health monitoring. - Engage in light exercise to improve knee function without exacerbating pain. - Report any new symptoms or increased pain promptly.
[2024-07-06 09:20] VITALS: BP 130/82; BMI 29.9
--- OUTSIDE RECORDS SUMMARY | 2024-07-06 09:43 | XMS_ITS | Clinical Summary ---
Author Organization [facility] Address [address] [place] [address] Care Team Providers Care Hotel Manager Name Role Phone Carmelita Goncalves MD Primary Care Provider [phone] Surgical History Surgery Date Site/Laterality Comments COLON [...] drink = 0.6 oz pur e alcohol) Comments Unknown Sex and Gender Information Value Date Recorded Sex Assigned at Not on file Legal Sex Female 4:50 AM EST Gender Identity Not on file Sexual Orientation [...] DTaP,Tdap,and Td Vaccines (1 - Tdap) 1976 Pneumococcal Vaccine: 50+ Ye ars (1 of 1 - PCV) 10/08/2007 Zoster Vaccines (1 of 2) 10/08/2007 Colorectal Cancer Screening: Colonoscopy 04/30/2022 Depression Screening 04/30/2022 Hepatitis C Screening 04/30/2022 Osteoporosis Screening (Bone Density Screening) 04/30/2022 Social Influencers of Health Screening 04/30/2022 Falls Risk Assessment 2022 COVID-19 Vaccine (1 - 2023-2 5 [...] patient's age to complete this topic Meningococcal B Vacine Aged Out No lo nger eligible based on patient's age to complete this topic RSV Immunization Patients Un gertrudis 20 months Aged Out No longer eligible b ased on patient's age to complete this topic Varicella Vaccines Aged Out No longer eligible based on patient's age to complete this topic Care Teams Hotel Manager Relationship Specialty Start Date End Date Carmelita Goncalves MD [address] [place] [address] , [address] [facility] Physician Associ D/B/A: [facility] KATIE Alvarez PCP - General Internal Medicine 11/10/16
== END 2024-07-06 09:56 | disposition home or self-care (01) ==
PROVIDERS: PCP Internal Medicine; Visit Provider Internal Medicine
DX: Z00.00 Encounter for general adult medical examination without abnormal findings (principal); M25.562 Pain in left knee

== ENCOUNTER → 2024-07-06 09:18 | Outpatient (BNVA) | payer MEDICARE, SELFPAY | PROVIDERS: PCP Internal Medicine; Visit Provider Internal Medicine | DX: Z00.01 Encounter for general adult medical examination with abnormal findings (principal); M25.562 Pain in left knee; I10 Essential (primary) hypertension | CPT/HCPCS: 96127; 99212; 99397 ==

== ENCOUNTER 2024-08-21 07:34 | Outpatient (REF) | payer MEDICARE, SELFPAY ==
--- NOTE | ~2024-08-21 | XR_ITS ---
EXAMINATION: XR KNEE, LEFT CLINICAL INFORMATION: M25.562 - Pain in left knee COMPARISON: None available. TECHNIQUE: Three views of the left knee. FINDINGS: No fracture, dislocation, or suspicious bone lesion. Normal bone mineralization. Normal alignment. There is very mild tricompartmental osteoarthritis, with subtle/early marginal osteophytic spurs. No significant joint effusion. Soft tissues appear normal. XR/XR knee LT 3V IMPRESSION: 1. No acute findings left knee. 2. Very mild tricompartmental osteoarthritis. 3. No evidence of joint effusion. Electronically signed by: Eduardo Martin MD 08/22/2024 02:34 PM EDT
== END 2024-08-21 07:35 | disposition home or self-care (01) ==
LOC: HO.HOSX 07:34
PROVIDERS: PCP Internal Medicine; Visit Provider Orthopaedic Surgery
DX: M25.562 Pain in left knee (principal)
CPT/HCPCS: 73562; 99202

== ENCOUNTER → 2024-08-21 13:45 | Outpatient (BNV) | payer MEDICARE, SELFPAY | PROVIDERS: PCP Internal Medicine; Visit Provider Radiology Diagnostic Radiology | DX: M25.562 Pain in left knee (principal) | CPT/HCPCS: 73562 ==

== ENCOUNTER 2024-08-21 14:11 | Outpatient (AMB) | payer MEDICARE, SELFPAY ==
--- NOTE | 2024-08-21 14:39 | A.OFFVIS_ITS ---
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 Patient reports the pain is located on the lateral aspect of the knee. Patient shares pain worsens when bending at the knee, walking, sitting and using the stairs. Has tried ibuprofen with relief. Denies prior injuries or surgeries to the knee. She denies any locking or giving way. She states that her knee pain has gotten somewhat better over the last few weeks. Allergies No Known Allergies [No Known Allergies*] Allergy (Verified 08/21/24 14:42) Medication List - Last Reconciled 08/21/24 by Gianluca Syed MD hydrochlorothiazide 25 mg PO DAILY ibuprofen 800 mg PO Q8H PRN 30 days levocetirizine (Xyzal) 5 mg PO DAILY rosuvastatin 5 mg PO DAILY PFSH Medical History Incisional hernia History of colon cancer Impaired glucose tolerance Pure hypercholesterolemia Urticaria Migraines Essential hypertension Surgical History History of incisional hernia repair (~2022) History of hernia surgery Hx of colonoscopy History of incisional hernia repair History of ileostomy History of hemicolectomy History of tubal ligation Family History Father Throat cancer Mother Diabetes Sister Uterine cancer Brother Lung cancer Social History Housing: Apartment Alcohol intake: never Patient Tobacco Use Status: Former Tobacco user Tobacco use type: Cigarette e-Cigarette/Vaping Use: Never Used Second Hand Smoke Exposure: No service: No Current occupational status: disabled Sexual orientation: Straight/Heterosexual Gender identity: Female Cognitive needs: No Hearing needs: No Vision needs: No Female Reproductive History Menstrual Age of Menarche: 13 Physical Exam Vital Signs: BMI result Body Mass Index 29.9 Const Other: Well-nourished well-developed very friendly female awake alert and oriented x3 in no acute distress Extrem Other: Bilateral lower extremity examination shows good capillary refill, no skin lesions noted, normal sensation light touch Left knee examination shows a minimal effusion, minimal crepitus with range of motion, negative Pily's test, no instability Results Reviewed Results Reviewed: X-rays of the patient's left knee show mild diffuse joint space narrowing, no acute bony abnormalities Assessment & Plan Assessment & Plan (1) Left knee pain: Code(s): M25.562 - Pain in left knee Category: Medical Plan Ms. Koenig presents with intermittent left knee discomfort due to early degenerative joint disease. I had a lengthy discussion with the patient regarding the treatment options. At this point the patient's symptoms are tolerable to her. We will hold off on a cortisone injection. She will follow up with me on an as-needed basis should her symptoms worsen in any way. Feel free to call me at any time should questions regarding her orthopedic management arise. I spent 21 minutes in reviewing the patient's records and imaging studies, seeing the patient and documenting in the medical record. Orders: Orders XR knee LT 3V Today M25.562 - Pain in left knee Coding Level of Care Code New Pt Level 3 (89861) Complex EM visit Add On G2211 Diagnoses Left knee pain M25.562
[2024-08-21 14:42] VITALS: BMI 29.9
--- OUTSIDE RECORDS SUMMARY | 2024-08-21 16:03 | XMS_ITS | Clinical Summary ---
Author Organization [facility] Address [address] [place] [address] Care Team Providers Care Production Machine Shop Supervisor Name Role Phone Carmelita Goncalves MD Primary Care Provider [phone] Surgical History Surgery Date Site/Laterality Comments COLON [...] age to complete this topic Care Teams Production Machine Shop Supervisor Relationship Specialty Start Date End Date Carmelita Goncalves MD [address] [place] [address] , [address] [facility] Physician Associ D/B/A: [facility] KATIE Alvarez PCP - General Internal Medicine 11/10/16
== END 2024-08-21 15:03 | disposition home or self-care (01) ==
LOC: HO.HOS 14:12
PROVIDERS: PCP Internal Medicine; Visit Provider Orthopaedic Surgery
DX: M25.562 Pain in left knee (principal)
CPT/HCPCS: 99203; G2211

== ENCOUNTER 2024-08-23 11:09 | Outpatient (REF) | payer MEDICARE, SELFPAY ==
--- OUTSIDE RECORDS SUMMARY | 2024-08-23 13:33 | XMS_ITS | Clinical Summary ---
Author Organization [facility] Address [address] [place] [address] Care Team Providers Care Assembly Person Name Role Phone Carmelita Goncalves MD Primary Care Provider Surgical History Surgery Date Site/Laterality Comments COLON [...] 2024 Influenza Vaccine (#1) 2024 RSV Immunization Adult Patie nts (1 - 1-dose 75+ series) 2032 HIB [...] age to complete this topic Care Teams Assembly Person Relationship Specialty Start Date End Date Carmelita Goncalves MD [address] [place] [address] , [address] [facility] Physician Associ D/B/A: [facility] KATIE Alvarez PCP - General Internal Medicine 11/10/16
== END 2024-08-23 11:10 | disposition home or self-care (01) ==
LOC: HO.MAMMO 11:09
PROVIDERS: PCP Internal Medicine; Visit Provider Internal Medicine
DX: Z12.31 Encounter for screening mammogram for malignant neoplasm of breast (principal)
CPT/HCPCS: 77063; 77067

== ENCOUNTER → 2024-08-23 11:30 | Outpatient (BNV) | payer MEDICARE, SELFPAY | PROVIDERS: PCP Internal Medicine; Visit Provider Internal Medicine | DX: Z12.31 Encounter for screening mammogram for malignant neoplasm of breast (principal) | CPT/HCPCS: 77063; 77067 ==

== ENCOUNTER 2025-01-03 09:36 | Outpatient (AMB) | payer MEDICARE, SELFPAY ==
--- NOTE | 2025-01-03 09:40 | A.OFFPC_ITS ---
Vital Signs 01/03/25 09:41 Height 5 ft 4 in Weight 172 lb BMI 29.5 BP 120/64 Blood Pressure Location Lt brachial Position Sitting Respiration 18 Pulse 81 Pulse Source Pulse Oximeter Temp 97 F Temp Source Temporal Artery Scan Pulse Oximetry (%) 97 Oxygen Delivery Method Room Air Intake Visit Reasons: BP Commissioner Of Conciliation Required: No Accompanied by: Self / Same As Patient Allergies No Known Allergies (No Known Allergies*) Allergy (Verified 01/03/25 09:59) Medication List - Last Reconciled 01/03/25 by Carmelita Goncalves MD hydrochlorothiazide 25 mg PO DAILY ibuprofen 800 mg PO Q8H PRN 30 days levocetirizine (Xyzal) 5 mg PO DAILY rosuvastatin 5 mg PO DAILY Tobacco use date assessed: 07/06/24 Fall risk assessment: 1 Fall in past year Last assessed Fall Risk: 01/03/25 Dental Screening Dental Screen Date: 01/03/25 Did you have a dental visit in the last 12 months?: No Did you have a dental problem in the last 6 months where you did not have access to dental care?: No Was dental information given to patient?: Patient has dentist HPI HPI Comments History of Present Illness Details The patient is a 69-year-old female presenting with hypertension management. Her blood pressure goal is less than 130/80 mmHg, which she has achieved. The patient has a history of colon cancer diagnosed eight years ago, for which she received chemotherapy. She reports that she has been taking medications consistently since before her cancer diagnosis. The patient also reports experiencing allergic reactions for the past eight years, following chemotherapy. She has been evaluated by an medical coding manager in [place], who did not identify any specific allergies. [facility] Medical History (Updated 01/03/25 @ 10:06 by Carmelita Goncalves MD) Incisional hernia History of colon cancer Impaired glucose tolerance Pure hypercholesterolemia Urticaria Migraines Essential hypertension Surgical History History of incisional hernia repair (~2022) History of hernia surgery Hx of colonoscopy History of incisional hernia repair History of ileostomy History of hemicolectomy History of tubal ligation Family History Father Throat cancer Mother Diabetes Sister Uterine cancer Brother Lung cancer Social History Housing: Apartment Alcohol intake: never Patient Tobacco Use Status: Former Tobacco user Tobacco use type: Cigarette e-Cigarette/Vaping Use: Never Used Second Hand Smoke Exposure: No service: No Current occupational status: disabled Sexual orientation: Straight/Heterosexual Gender identity: Female Cognitive needs: No Hearing needs: No Vision needs: No Female Reproductive History Menstrual Age of Menarche: 13 Questionnaire PHQ-9 Over the last 2 weeks, how often have you been bothered by any of the following problems? 1. Little interest or pleasure in doing things: not at all 2. Feeling down, depressed, or hopeless: not at all 3. Trouble falling or staying asleep, or sleeping too much: not at all 4. Feeling tired or having little energy: several days 5. Poor appetite or overeating: not at all 6. Feeling bad about yourself - or that you are a failure or have let yourself or your family down: not at all 7. Trouble concentrating on things, such as reading the newspaper or watching television: not at all 8. Moving or speaking so slowly that other people could have noticed. Or the opposite - being so fidgety or restless that you have been moving around a lot more than usual: not at all 9. Thoughts that you would be better off or of hurting yourself in some way: not at all Total score: 1 Depression Screening Interpretation: Negative Depression Screening Done: Yes 50959 - PHQ-9 Billing: Yes Source: Developed by Drs. Jag Oropeza, Ami Oneill, Alex Castanon and colleagues, with an educational kianna from [employer]. Thrive Questionnaire Date Thrive assessed: 01/03/25 I am a: Patient What is your living situation today?: I have a steady place to live Within the past 12 months, did the food you bought not last and you didn't have the money to get more?: Never true Within the past 12 months, did you worry whether your food would run out before you got money to buy more?: Never true Do you have trouble paying for medicines?: No Do you have trouble getting transportation to medical appointments?: No Do you have trouble paying your heating and electricity bill?: No Do you have trouble taking care of your child, family member or friend?: No Do you have trouble with day-to-day activities such as bathing, preparing meals, shopping, managing finances, etc.?: No Are you currently unemployed and looking for a job?: No Are you interested in more education?: No Please select the resources that you would like help with: None Currently or been in a relationship where the following occur: I choose not to answer THRIVE Score: 0 AUDIT C Alcohol Use Questionnaire (AUDIT-C) 1. How often do you have a drink containing alcohol?: Never 3. How often do you have six or more drinks on one occasion?: Never Total Score: 0 Score Reviewed/Action Taken: No EVELYN-7 AMB Questionnaire EVELYN-7 Date EVELYN - 7 assessed: 01/03/25 Feeling nervous, anxious, or on edge: 0 = Not at all Not being able to stop or control worryin = Not at all Worrying too much about different things: 0 = Not at all Trouble relaxin = Not at all Being so restless that it is hard to sit still: 0 = Not at all Becoming easily annoyed or irritable: 0 = Not at all Feeling afraid as if something awful might happen: 0 = Not at all Total EVELYN-7 score (0-4 normal; 5-9 mild; 10-14 moderate; 15-21 severe): 0 Source: Developed by Drs. Jag Orpoeza, Ami Oneill, Alex Castanon and colleagues, with an educational kianna from [employer]. EVELYN-7 Assessment Billing EVELYN-7 Assessment Tool: EVELYN-7 Assessment 19733 Review of Systems Const All systems reviewed & are unremarkable except as noted in HPI and below Card Denies chest pain at rest, Denies chest pain with activity, Denies edema, Denies irregular heart rhythm, Denies claudication, Denies dyspnea, Denies dyspnea on exertion, Denies orthopnea, Denies paroxysmal nocturnal dyspnea and Denies slow heart rate Resp Denies cough, Denies dyspnea and Denies dyspnea on exertion Physical exam (Primary Care) Vital Signs: Last Vital Signs Temp 97 F 01/03/25 09:41 Pulse 81 01/03/25 09:41 Resp 18 01/03/25 09:41 BP 120/64 01/03/25 09:41 Pulse Ox 97 01/03/25 09:41 Oxygen Delivery Method Room Air 01/03/25 09:41 BMI result Body Mass Index 29.5 Tobacco/Smoking Status: Tobacco use Status Tobacco use date assessed 07/06/24 01/03/25 09:47 Patient Tobacco Use Status Former Tobacco user 01/03/25 09:47 Tobacco use type Cigarette 01/03/25 09:47 e-Cigarette/Vaping Use Never Used 01/03/25 09:47 PHQ-9: PHQ-9 Score PHQ-9: Total score 1 01/03/25 10:02 Depression Screening Interpretation: Negative Thrive Assessment: Date of Thrive Assessment Date Thrive assessed 01/03/25 01/03/25 09:47 Currently or been in a relationship where the following occur: I choose not to answer Resp Effort & Inspection: normal respiratory effort Auscultation: clear to auscultation bilaterally Cardio Jugular venous distension: no JVD Rate: regular rate Rhythm: regular rhythm Heart sounds: S1 normal heart sound present and S2 normal heart sound present Extrem General: Yes full ROM Coding Level of Care Code Est Pt Level 4 (92479) Complex EM visit Add On G2211 Diagnoses Essential hypertension I10 Pure hypercholesterolemia E78.00 Urticaria L50.9 History of colon cancer Z85.038 Additional Codes EVELYN-7 Assessment Billing - EVELYN-7 Assessment Tool: EVELYN-7 Assessment 85961 ([id number]) PHQ-9 - 30548 - PHQ-9 Billing: Yes ([id number]) Time Spent (min) 20 Assessment & Plan Assessment & Plan (1) Essential hypertension: Code(s): I10 - Essential (primary) hypertension Category: Medical (2) Pure hypercholesterolemia: Code(s): E78.00 - Pure hypercholesterolemia, unspecified Category: Medical (3) Urticaria: Code(s): L50.9 - Urticaria, unspecified Category: Medical (4) History of colon cancer: Code(s): Z85.038 - Personal history of other malignant neoplasm of large intestine Category: Medical Plan The plan includes continuing the current hypertension management as the patient has achieved her blood pressure goal. For the allergic reactions, the patient will be prescribed Zyrtec, famotidine 40 mg twice daily, and Montelukast at night. She will be referred to another medical coding manager for further evaluation. Laboratory tests will be scheduled for the next visit in six months to monitor her condition. Patient was informed and verbally consented to the use of an ambient scribe for clinic note documentation during this visit. Orders: Orders IgE Antibody (Anti-IgE IgG) 6 Months L50.9 - Urticaria, unspecified Lipid Panel 6 Months E78.5 - Hyperlipidemia, unspecified, L50.9 - Urticaria, unspecified Complete Blood Count Auto Diff 6 Months L50.9 - Urticaria, unspecified Comprehensive [place]. Panel Fast 6 Months L50.9 - Urticaria, unspecified Referrals Allergy & Immunology Referral L50.9 - Urticaria, unspecified Medications: New famotidine 40 mg PO BID 180 tabs 1RF 90 days L50.9 - Urticaria, unspecified cetirizine (All Day Allergy (cetirizine)) 10 mg PO DAILY PRN 90 tabs 0RF allergy symptoms 90 days L50.9 - Urticaria, unspecified montelukast 10 mg PO BEDTIME 90 tabs 1RF 90 days L50.9 - Urticaria, unspecified
[2025-01-03 09:41] VITALS: BP 120/64; PULSE 81; RESP 18; TEMP 36.1; O2SAT 97; BMI 29.5
--- OUTSIDE RECORDS SUMMARY | 2025-01-03 10:05 | XMS_ITS | Clinical Summary ---
Author Organization [facility] ity Address [address] [place] [address] Care Team Providers Care Novelty Dipper Name Role Phone Carmelita Goncalves MD Primary Care Provider [phone] Surgical History Surgery Date Site/Laterality Comments COLON SURGERY PROCEDURE:COLON SURGERY COLONOSCOPY PROCEDURE:COLONOSCOPY PORTACATH PLACEMENT PROCEDURE:PORTACATH PLACEMENT TUBAL LIGATION PROCEDURE:TUBAL LIGATION Medical History Medical History Date Comments Colon cancer (CMS/HCC V24, CMS/HCC V28) DX:Colon cancer (HCC) H/O inguinal hernia repair [...] 2) 10/08/2007 Colorectal Cancer Screening: Colonoscopy 04/30/2022 Hepatitis C Screening 04/30/2022 Osteoporosis Screening (Bone Density Screening) 04/30/2022 Social Influencers of Health Screening 04/30/2022 Falls Risk Assessment 2022 COVID-19 Vaccine (1 - 2023-2 5 season) 2024 Depression Screening 05/24/2024 Influenza Vaccine (#1) 2025 RSV Immunization Adult Patie nts (1 - [...] age to complete this topic Meningococcal B Vaccine Aged Out No l onger eligible based on patient's age to complete this topic RSV Immunization Patients Un gertrudis 20 months Aged Out No longer eligible b ased on patient's age to complete this topic Varicella Vaccines Aged Out No longer eligible based on patient's age to complete this topic Care Teams Novelty Dipper Relationship Specialty Start Date End Date Carmelita Goncalves MD [address] [place] [address] , [address] [facility] D[facility]A: [facility] KATIE Alvarez PCP - General Internal Medicine 11/10/16
== END 2025-01-03 10:15 | disposition home or self-care (01) ==
LOC: HO.HMCH 09:37
PROVIDERS: PCP Internal Medicine; Visit Provider Internal Medicine
DX: I10 Essential (primary) hypertension (principal); E78.00 Pure hypercholesterolemia, unspecified; L50.9 Urticaria, unspecified; Z85.038 Personal history of other malignant neoplasm of large intestine

== ENCOUNTER → 2025-01-03 09:36 | Outpatient (BNVA) | payer MEDICARE, SELFPAY | PROVIDERS: PCP Internal Medicine; Visit Provider Internal Medicine | DX: I10 Essential (primary) hypertension (principal); E78.00 Pure hypercholesterolemia, unspecified; L50.9 Urticaria, unspecified; Z85.038 Personal history of other malignant neoplasm of large intestine | CPT/HCPCS: 96127; 99212 ==